=== PATIENT | female | born 1960 | race Caucasian/White ===

== ENCOUNTER 2020-10-22 13:42 | Outpatient (REF) | payer OTHER, SELFPAY ==
--- NOTE | ~2020-10-22 | MM_ITS ---
EXAMINATION: MM DIAGNOSTIC DIGITAL BREAST TOMOSYNTHESIS, RIGHT CLINICAL INFORMATION: Short interval follow-up probable benign calcifications right breast posterior 8:30 o'clock position. The lifetime risk of breast cancer based on the Tyrer-Cuzick Model is 7%. COMPARISON: Mammography: 04/01/2020, 03/21/2020 (BI-RADS 0), 05/26/2018 TECHNIQUE: Digital breast tomosynthesis is performed in both the craniocaudal and mediolateral oblique views along with computer-aided detection (CAD). Synthesized 2D images are generated from the tomosynthesis. Additional magnification right CC and magnification right ML views are obtained. FINDINGS: There are scattered areas of fibroglandular density (ACR BI-RADS breast composition Category b). Breast parenchymal pattern is unremarkable. There is no developing density or interval mass or architectural abnormality. The calcifications for follow-up posterior 8:30 o'clock position are stable from prior diagnostic exam and possibly chronic, although better appreciated with magnification views. They will be reassessed again at time of annual bilateral mammography, due in 6 months. Results are provided to the patient at time of visit by the technologist. MM/MM tomosynthesis diagnostic RT IMPRESSION: Probable benign calcifications posterior 8:30 o'clock position stable from prior diagnostic exam. ASSESSMENT: BI-RADS 3: Probably Benign RECOMMENDATION: Diagnostic mammography at time of bilateral annual exam, due in 6 months. This patient's information was entered into a reminder system with a target due date for their next mammogram.
== END 2020-10-22 13:43 | disposition home or self-care (01) ==
LOC: HO.MAMMO 13:42
PROVIDERS: PCP Internal Medicine; Visit Provider Internal Medicine
DX: R92.1 Mammographic calcification found on diagnostic imaging of breast (principal)
CPT/HCPCS: 77061; 77065

== ENCOUNTER 2021-03-26 11:58 | Outpatient (REF) | payer OTHER, SELFPAY ==
[2021-03-26 14:22] LABS: MANUAL DIFF FLAG NO
[2021-03-26 14:28] LABS: Basophils Percent Auto 0.4 % (0-2); Eosinophils Absolute Auto 0.1 X10*3/uL (0.0-0.4); Eosinophils Percent Auto 1.5 % (0-4); Hematocrit 43.1 % (37-47); Hemoglobin 13.6 g/dl (12.0-16.0); Imm Gran Abs Auto 0.02 X10*3/uL (0.00-0.03); Imm Gran Pct Auto 0.3 % (0.0-0.4); Lymphocytes Absolute Auto 2.2 X10*3/uL (1.2-4.9); Lymphocytes Percent Auto 28.6 % (20-40); Mean Corpuscular HGB Conc 31.6 g/dl (31.0-35.0); Mean Corpuscular Hemoglobin 28.3 pg (27.0-33.0); Mean Corpuscular Volume 89.8 fL (80-98); Mean Platelet Volume 11.1 fL (9.4-12.3); Monocytes Absolute Auto 0.5 X10*3/uL (0.1-1.2); Monocytes Percent Auto 6.9 % (2-11); Neutrophils Absolute Auto 4.7 X10*3/uL (2.0-8.3); Neutrophils Percent Auto 62.3 % (45-73); Platelet Count 264 X10*3/uL (160-400); White Blood Count 7.5 X10*3/uL (4.8-10.8)
[2021-03-26 14:56] LABS: Alanine Aminotransferase 16 U/L (0-31); Albumin Level 4.1 g/dL (3.5-5.0); Alkaline Phosphatase 97 U/L (39-117); Anion Gap 11 (12-20); Aspartate Amino Transferase 15 U/L (5-31); Bilirubin Total 0.3 mg/dL (0.0-1.0); Blood Urea Nitrogen 12 mg/dL (9-16); Calcium 9.3 mg/dL (8.4-10.2); Carbon Dioxide 26 mmol/L (22-29); Chloride 111 mmol/L (96-108); Cholesterol 203 mg/dL; Estimated Glomerular Filt Rate > 60; Glucose Random 94 mg/dL (60-115); HDL Cholesterol 62 mg/dL; LDL Cholesterol Calculated 129 mg/dl; Potassium 4.4 mmol/L (3.3-5.1); Sodium 144 mmol/L (135-145); Total Protein 6.2 g/dL (6.5-8.0); Triglycerides 63 mg/dL
[2021-03-26 15:05] LABS: Free T4 (Free Thyroxine) 1.18 ng/dL (0.71-1.85); Thyroid Stimulating Hormone 0.22 uIU/mL (0.32-4.0); Vitamin D 25-OH Total 43.6 ng/mL (>30)
[2021-03-26 15:22] LABS: Folate 16.9 ng/mL (> or = 4.0); Vitamin B12 1097 pg/mL (200-900)
== END 2021-03-26 11:59 | disposition home or self-care (01) ==
LOC: HO.HMGCLDS 11:58
PROVIDERS: PCP Internal Medicine; Visit Provider Internal Medicine
DX: E89.0 Postprocedural hypothyroidism (principal); E78.00 Pure hypercholesterolemia, unspecified
CPT/HCPCS: 36415; 80053; 80061; 82306; 82607; 82746; 84439; 84443; 85025

== ENCOUNTER 2021-04-27 12:59 | Outpatient (REF) | payer OTHER, SELFPAY ==
--- NOTE | ~2021-04-27 | MM_ITS ---
EXAMINATION: MM DIAGNOSTIC DIGITAL BREAST TOMOSYNTHESIS, BILATERAL CLINICAL INFORMATION: Due for yearly. Also follow-up probable benign calcifications anterior 8:30 o'clock right breast. The lifetime risk of breast cancer based on the Tyrer-Cuzick Model is 7%. COMPARISON: Mammography: 10/22/2020, 04/01/2020 (BI-RADS 0), 05/26/2018 TECHNIQUE: Digital breast tomosynthesis is performed in both the craniocaudal and mediolateral oblique views along with computer-aided detection (CAD). Synthesized 2D images are generated from the tomosynthesis. Additional magnification right CC and magnification right ML views are provided. FINDINGS: There are scattered areas of fibroglandular density (ACR BI-RADS breast composition Category b). Parenchymal pattern is similar to prior studies. There is no developing density or architectural abnormality. No interval abnormal calcifications. There are scattered bilateral punctate calcifications in both breasts. There are no increasing calcifications posterior 8:30 o'clock right breast. No interval ductal distribution or pleomorphic types. The axilla and skin contours are unremarkable. Results are provided to the patient at time of visit by the technologist. Right breast calcifications will be reassessed again at time of annual bilateral mammography to conclude long-term surveillance. MM/MM tomosynthesis diagnostic BI IMPRESSION: No significant changes from prior study. ASSESSMENT: BI-RADS 3: Probably Benign RECOMMENDATION: Magnification views right breast at time of next bilateral annual mammography, due in one year. This patient's information was entered into a reminder system with a target due date for their next mammogram.
== END 2021-04-27 13:00 | disposition home or self-care (01) ==
LOC: HO.MAMMO 12:59
PROVIDERS: Visit Provider Internal Medicine
DX: R92.1 Mammographic calcification found on diagnostic imaging of breast (principal)
CPT/HCPCS: 77062; 77066

== ENCOUNTER 2022-05-10 14:34 | Outpatient (REF) | payer OTHER, SELFPAY ==
--- NOTE | ~2022-05-10 | MM_ITS ---
EXAMINATION: MM DIAGNOSTIC DIGITAL BREAST TOMOSYNTHESIS, BILATERAL CLINICAL INFORMATION: One-year followup for right breast calcifications. Yearly left breast study. The lifetime risk of breast cancer based on the Tyrer-Cuzick Model is 7.1%. COMPARISON: Mammography: 04/27/2021 and studies dating back to 02/27/2014. TECHNIQUE: Digital breast tomosynthesis is performed in both the craniocaudal and mediolateral oblique views along with computer-aided detection (CAD). Synthesized 2D images are generated from the tomosynthesis. Additional spot magnification views of the right breast in craniocaudal and 90 degree mediolateral views were performed. FINDINGS: There are scattered areas of fibroglandular density (ACR BI-RADS breast composition Category b). There are no new significant masses, abnormal calcifications, or other abnormalities. Right breast calcifications have been stable for greater than 2 years. Results are provided to the patient at time of visit by the technologist. MM/MM tomosynthesis diagnostic BI IMPRESSION: There are no significant changes from prior study. ASSESSMENT: BI-RADS 2: Benign RECOMMENDATION: Routine annual mammography screening due in 12 months. This patient's information was entered into a reminder system with a target due date for their next mammogram.
== END 2022-05-10 14:35 | disposition home or self-care (01) ==
LOC: HO.MAMMO 14:34
PROVIDERS: Visit Provider Internal Medicine
DX: R92.1 Mammographic calcification found on diagnostic imaging of breast (principal)
CPT/HCPCS: 77062; 77066

== ENCOUNTER 2022-08-08 09:20 | Outpatient (REF) | payer OTHER, SELFPAY ==
[2022-08-08 11:19] LABS: MANUAL DIFF FLAG NO
[2022-08-08 11:49] LABS: Basophils Absolute Auto 0.1 X10*3/uL (0.0-0.2); Basophils Percent Auto 0.6 % (0-2); Eosinophils Absolute Auto 0.6 X10*3/uL (0.0-0.4); Eosinophils Percent Auto 7.7 % (0-4); Hematocrit 42.8 % (37.0-47.0); Hemoglobin 13.9 g/dl (12.0-16.0); Imm Gran Abs Auto 0.02 X10*3/uL (0.00-0.03); Imm Gran Pct Auto 0.2 % (0.0-0.4); Immature Retic Fraction 4.7 % (3.0-15.9); Lymphocytes Absolute Auto 2.3 X10*3/uL (1.2-4.9); Lymphocytes Percent Auto 29.1 % (20-40); Mean Corpuscular HGB Conc 32.5 g/dl (31.0-35.0); Mean Corpuscular Hemoglobin 29.1 pg (27.0-33.0); Mean Corpuscular Volume 89.7 fL (80.0-98.0); Monocytes Absolute Auto 0.6 X10*3/uL (0.1-1.2); Monocytes Percent Auto 6.9 % (2-11); Neutrophils Absolute Auto 4.4 x10*3/uL (2.0-8.3); Neutrophils Percent Auto 55.5 % (45-73); Platelet Count 248 X10*3/uL (160-400); Red Blood Count 4.77 X10*6/uL (4.20-5.50); Red Cell Distribution Width 13.2 % (11.0-16.0); Retic HGB Equivalent 34.4 pg (30.0-35.0); Reticulocyte Percent 0.9 % (0.5-1.8); Reticulocytes Absolute 0.043 X10*6/uL (0.026-0.095)
[2022-08-08 13:47] LABS: Folate 17.1 ng/mL (> or = 4.0); Vitamin B12 1363 pg/mL (200-900)
[2022-08-08 14:05] LABS: Alanine Aminotransferase 17 U/L (0-31); Albumin Level 4.2 g/dL (3.5-5.0); Alkaline Phosphatase 101 U/L (39-117); Anion Gap 11 (12-20); Aspartate Amino Transferase 17 U/L (5-31); Bilirubin Total 0.5 mg/dL (0.0-1.0); Blood Urea Nitrogen 15 mg/dL (9-16); Calcium 9.3 mg/dL (8.4-10.2); Carbon Dioxide 28 mmol/L (22-29); Chloride 107 mmol/L (96-108); Cholesterol 218 mg/dL; Estimated Glomerular Filt Rate > 60; Glucose Random 88 mg/dL (60-115); HDL Cholesterol 62 mg/dL; Iron 97 mcg/dL (30-160); LDL Cholesterol Calculated 140 mg/dl; Percent Iron Saturation 38 % (15-50); Potassium 4.2 mmol/L (3.3-5.1); Sodium 142 mmol/L (135-145); Total Iron Binding Capacity 255 mcg/dL (228-428); Total Protein 6.5 g/dL (6.5-8.0); Triglycerides 80 mg/dL; Unsaturated Iron Binding 158 ug/dL
[2022-08-08 14:06] LABS: Ferritin 187 ng/mL (10-250); Free T4 (Free Thyroxine) 1.22 ng/dL (0.71-1.85); Thyroid Stimulating Hormone 2.44 uIU/mL (0.32-4.0); Vitamin D 25-OH Total 38.6 ng/mL (>30)
[2022-08-10 21:49] LABS: Zinc 81 mcg/dL (60-130)
== END 2022-08-08 09:21 | disposition home or self-care (01) ==
LOC: HO.HMGCLDS 09:20
PROVIDERS: Absent Provider Dermatology; PCP Internal Medicine; Visit Provider Internal Medicine
DX: E89.0 Postprocedural hypothyroidism (principal); K21.9 Gastro-esophageal reflux disease without esophagitis; E78.00 Pure hypercholesterolemia, unspecified
CPT/HCPCS: 36415; 80053; 80061; 82306; 82607; 82728; 82746; 83540; 84439; 84443; 84630; 85025; 85045

== ENCOUNTER → 2023-05-11 13:30 | Outpatient (BNV) | payer OTHER, SELFPAY | PROVIDERS: Visit Provider Radiology Diagnostic Radiology | DX: Z12.31 Encounter for screening mammogram for malignant neoplasm of breast (principal) | CPT/HCPCS: 77063; 77067 ==

== ENCOUNTER 2023-05-11 13:32 | Outpatient (REF) | payer OTHER, SELFPAY | END 2023-05-11 13:33 | disposition home or self-care (01) | LOC: HO.MAMMO 13:32 | PROVIDERS: Visit Provider Internal Medicine | DX: Z12.31 Encounter for screening mammogram for malignant neoplasm of breast (principal) | CPT/HCPCS: 77063; 77067 ==

== ENCOUNTER 2023-07-03 17:20 | Outpatient (AMB) | payer OTHER, SELFPAY ==
[2023-07-03 17:30] VITALS: BP 138/88; PULSE 55; O2SAT 97; BMI 28.7
--- NOTE | 2023-07-03 17:30 | A.OFFPC_ITS ---
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: No Accompanied by: Self / Same As Patient Allergies thyrotropin [Thyrogen] Allergy (Unknown, Verified 07/03/23 17:30) Rash Medication List - Last Reconciled 07/03/23 by Hever Solis MD calcium carbonate ([place]) 168 mg PO .QD cholecalciferol (vitamin D3) 25 mcg PO DAILY docusate sodium 100 mg PO DAILY ferrous sulfate (Feosol) 325 mg PO DAILY flaxseed oil 1,000 mg PO DAILY fluticasone propionate 50 mcg/actuation 2 sprays intranasal DAILY Lactobacillus combo no.23 (Berto Probiotic) cells PO levothyroxine (Levoxyl) 88 mcg PO DAILY vitamin B complex (B Complex-Vitamin B12 tablet) 1 tab PO DAILY Tobacco use date assessed: 07/03/23 Fall risk assessment: No Falls in past year Last assessed Fall Risk: 07/03/23 Dental Screening Dental Screen Date: 07/03/23 Did you have a dental visit in the last 12 months?: Yes Did you have a dental problem in the last 6 months where you did not have access to dental care?: No Was dental information given to patient?: Patient has dentist HPI PHYSICAL HPI Details 62-year-old overweight female with a 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 Last seen in June 2022. Patient is up-to-date with colonoscopy January 2020. Mammogram up-to-date bone density with osteopenia last July 2018. Patient is for physical exam today.. 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 Patient was last seen on my notes endocrinology in [facility] last year. Last thyroid ultrasound was done in 2020 and was advised to repeat in 2-3 years [facility] Medical History (Updated 07/03/23 @ 17:35 by Hever Solis MD) Overweight (BMI 25.0-29.9) Osteopenia Hurthle cell carcinoma of thyroid GERD (gastroesophageal reflux disease) Hypercholesterolemia Generalized anxiety disorder Postsurgical hypothyroidism Obesity (BMI 30-39.9) Surgical History H/O toe surgery H/O tubal ligation History of hip replacement History of tonsillectomy Family History Paternal Grandfather Heart problem Maternal Grandfather Throat cancer Liver cancer Alcohol abuse Social History (Updated 07/03/23 @ 17:43 by Hever Solis MD) Housing: House Alcohol intake: current Comment: once a week 2 drinks Patient Tobacco Use Status: Never used Tobacco e-Cigarette/Vaping Use: Never Used service: No Current occupational status: employed Cognitive needs: No Hearing needs: No Vision needs: No Questionnaire PHQ-9 Over the last 2 weeks, how often have you been bothered by any of the following problems? 1. Little interest or pleasure in doing things: not at all 2. Feeling down, depressed, or hopeless: not at all 3. Trouble falling or staying asleep, or sleeping too much: not at all 4. Feeling tired or having little energy: not at all 5. Poor appetite or overeating: not at all 6. Feeling bad about yourself - or that you are a failure or have let yourself or your family down: not at all 7. Trouble concentrating on things, such as reading the newspaper or watching television: not at all 8. Moving or speaking so slowly that other people could have noticed. Or the opposite - being so fidgety or restless that you have been moving around a lot more than usual: not at all 9. Thoughts that you would be better off or of hurting yourself in some way: not at all Total score: 0 Depression Screening Interpretation: Negative Depression Screening Done: Yes Source: Developed by Drs. Houston Justice, Jia Marmolejo, Iker Acosta and colleagues, with an educational jonel from [employer]. Thrive Questionnaire Date Thrive assessed: 07/03/23 I am a: Patient What is your living situation today?: I have a steady place to live Within the past 12 months, did the food you bought not last and you didn't have the money to get more?: Never true Within the past 12 months, did you worry whether your food would run out before you got money to buy more?: Never true Do you have trouble paying for medicines?: No Do you have trouble getting transportation to medical appointments?: No Do you have trouble paying your heating and electricity bill?: No Do you have trouble taking care of your child, family member or friend?: No Do you have trouble with day-to-day activities such as bathing, preparing meals, shopping, managing finances, etc.?: No Are you currently unemployed and looking for a job?: No Are you interested in more education?: No Please select the resources that you would like help with: None Currently or been in a relationship where the following occur: no concerns reported AUDIT C Alcohol Use Questionnaire (AUDIT-C) 1. How often do you have a drink containing alcohol?: 2-3 times a week 2. How many drinks containing alcohol do you have on a typical day when you are drinking?: 1 or 2 3. How often do you have six or more drinks on one occasion?: Never Total Score: 3 CRISTINO-7 AMB Questionnaire CRISTINO-7 Date CRISTINO - 7 assessed: 07/03/23 Feeling nervous, anxious, or on edge: 0 = Not at all Not being able to stop or control worryin = Not at all Worrying too much about different things: 0 = Not at all Trouble relaxin = Not at all Being so restless that it is hard to sit still: 0 = Not at all Becoming easily annoyed or irritable: 0 = Not at all Feeling afraid as if something awful might happen: 0 = Not at all Total CRISTINO-7 score (0-4 normal; 5-9 mild; 10-14 moderate; 15-21 severe): 0 Source: Developed by Drs. Houston Justice, Jia Marmolejo, Iker Acosta and colleagues, with an educational jonel from [employer]. Review of Systems Const Denies poor appetite and Denies weakness Eyes Denies no additional complaints ENT Reports Normal hearing present, Denies dizziness, Denies nasal congestion, Denies tinnitus and Denies sore throat Card Denies chest pain, Denies syncope, Denies rapid heart rate and Denies dyspnea Resp Denies cough and Denies dyspnea GI Denies change in stool character, Reports constipation, Denies diarrhea, Denies nausea and Denies vomiting Denies urinary frequency, Denies difficulty voiding and Denies dysuria Neuro Reports Normal hearing present, Denies confusion, Denies dizziness, Denies syncope and Denies weakness Psych Denies confusion Physical exam (Primary Care) Vital Signs: Oxygen Delivery Method Room Air 07/03/23 17:30 Tobacco/Smoking Status: Tobacco use Status Tobacco use date assessed 07/03/23 07/03/23 17:32 Patient Tobacco Use Status Never used Tobacco 07/03/23 17:32 e-Cigarette/Vaping Use Never Used 07/03/23 17:32 PHQ-9: PHQ-9 Score PHQ-9: Total score 0 07/03/23 17:32 Depression Screening Interpretation: Negative Thrive Assessment: Date of Thrive Assessment Date Thrive assessed 07/03/23 12 17:32 Currently or been in a relationship where the following occur: no concerns reported Const General: No confusion Orientation/consciousness: No confusion HENMT Head: Yes normocephalic Ears: external ears normal and TM's normal bilaterally Face and sinus: Yes normal facial exam Mouth: moist mucous membranes Throat: Yes tonsils normal Eyes Conjunctivae: conjunctivae normal Pupils: Equal, round and reactive pupils present and Pupil accommodation reflex normal Direct Ophthalmoscopy: normal light reflex Neck Neck: No lymphadenopathy Thyroid: Thyroid normal Chest Chest palpation & inspection: normal inspection of the chest Resp Effort & Inspection: normal respiratory effort and no audible wheezes Auscultation: clear to auscultation bilaterally, no crackles, no wheezes and lung sounds not diminished Cardio Rate: regular rate Rhythm: regular rhythm Peripheral pulses: radial pulses present and dorsalis pedis present GI Palpation (GI): no masses Auscultation: normal bowel sounds and normoactive bowel sounds Rectal Exam - Female: deferred Skin General skin exam: no rashes or lesions noted Rashes: no rashes Neuro General: No confusion Cranial nerves: Yes Equal, round and reactive pupils present and Yes Normal hearing present Cognition (Neuro): normal cognition Gait exam (Neuro): Normal gait present Motor exam (neuro): 5/5 motor strength present throughout Deep tendon reflexes (DTR's): Right brachioradialis reflex intensity grade: 2+, Left brachioradialis reflex intensity grade: 2+, Right patellar reflex intensity grade: 2+ and Left patellar reflex intensity grade: 2+ Extrem General: No edema Assessment and Plan Assessment & Plan (1) Annual physical exam: Code(s): Z00.00 - Encounter for general adult medical examination without abnormal findings (2) Hurthle cell carcinoma of thyroid: Comment: [facility] Code(s): C73 - Malignant neoplasm of thyroid gland Plan: Patient is being followed up in [place] and from the last note last year was advised to get ultrasound of the thyroid. (3) Postsurgical hypothyroidism: Code(s): E89.0 - Postprocedural hypothyroidism Plan: Continue with thyroid medication and July 2022 last blood work (4) Hypercholesterolemia: Code(s): E78.00 - Pure hypercholesterolemia, unspecified Plan: Avoid fried foods, chicken skin, eggs, butter margarine, pastries and meat. Be it pork or beef they have a lot of cholesterol LDL goal of less than 130 and triglyceride of less than 150 (5) GERD (gastroesophageal reflux disease): Code(s): K21.9 - Gastro-esophageal reflux disease without esophagitis Plan: Avoid the foods that causes that usually spicy foods, tomato products, juices, coffee, soda and foods that your sensitive to. After eating do not lie down, allow 3-4 hours before in lie down. And keep the head of bed above 30 degrees to avoid the acid from going up. (6) Generalized anxiety disorder: Code(s): F41.1 - Generalized anxiety disorder (7) Osteopenia: Comment: July 2018 Code(s): M85.80 - Other specified disorders of bone density and structure, unspecified site (8) Overweight (BMI 25.0-29.9): Code(s): E66.3 - Overweight Orders: Orders Free T4 (Free Thyroxine) Today E89.0 - Postprocedural hypothyroidism Comprehensive Met. Panel Today E78.00 - Pure hypercholesterolemia, unspecified Thyroid Stimulating Hormone Today E89.0 - Postprocedural hypothyroidism Complete Blood Count Auto Diff Today E89.0 - Postprocedural hypothyroidism Lipid Panel Today E78.00 - Pure hypercholesterolemia, unspecified Vitamin B12 and Folate Today E78.00 - Pure hypercholesterolemia, unspecified Vitamin D 25-OH Total Today E78.00 - Pure hypercholesterolemia, unspecified XR DEXA axial skeleton Today M81.0 - Age-related osteoporosis without current pathological fracture, M85.80 - Other specified disorders of bone density and structure, unspecified site Coding Level of Care Code Est Pt Prev Care 40-64y(80075) Diagnoses Annual physical exam Z00.00 Hurthle cell carcinoma of thyroid C73 Postsurgical hypothyroidism E89.0 Hypercholesterolemia E78.00 GERD (gastroesophageal reflux disease) K21.9 Generalized anxiety disorder F41.1 Osteopenia M85.80 Overweight (BMI 25.0-29.9) E66.3
== END 2023-07-03 17:58 | disposition home or self-care (01) ==
PROVIDERS: Visit Provider Internal Medicine
DX: Z00.00 Encounter for general adult medical examination without abnormal findings (principal); C73 Malignant neoplasm of thyroid gland; E89.0 Postprocedural hypothyroidism; E78.00 Pure hypercholesterolemia, unspecified; K21.9 Gastro-esophageal reflux disease without esophagitis; F41.1 Generalized anxiety disorder; M85.80 Other specified disorders of bone density and structure, unspecified site; E66.3 Overweight
CPT/HCPCS: 99396

== ENCOUNTER 2023-08-02 14:02 | Outpatient (REF) | payer OTHER, SELFPAY ==
--- NOTE | ~2023-08-02 | MM_ITS ---
EXAMINATION: BONE DENSITOMETRY CLINICAL INDICATION: Age-related osteoporosis without current pathological fracture. COMPARISON: Previous BD dated 08/14/2018 and baseline BD dated 01/14/2009, 01/29/2015. TECHNIQUE: Using a [employer] DXA System (software version: 13.1) manufactured by [employer], dual-energy x-ray absorptiometry was performed of the lumbar spine and left forearm radius 33%. Patient had bilateral hip replacements. The images are of good technical quality. Summary results are attached. FINDINGS: AP SPINE L1-L4: Current: BMD 1.309 g/cm2, Z-score 2.4, T-score 1.1, normal, 8.5% increase from previous, 3.8% increase from baseline (<5% change is not significant). Prior: BMD 1.206 g/cm2. Baseline: BMD 1.261 g/cm2. LEFT FOREARM RADIUS 33%: BMD 0.799 g/cm2, Z-score 0.4, T-score -0.9, normal, 4.0% decrease from previous, 8.9% decrease from baseline (<5% change is not significant). Prior: BMD 0.832 g/cm2. Baseline: BMD 0.877 g/cm2. IDENTIFIED RISK FACTORS: Height loss, menopause. HISTORY OF FRACTURE: None listed. MEDICATIONS: Calcium supplements or multivitamin, vitamin D. MM/XR DEXA axial skeleton IMPRESSION: 1. DIAGNOSIS: Normal bone density based on the lowest T-score value of -0.9 in the forearm radius 33% applying World Health Organization criteria. 2. 10-YEAR FRACTURE RISK PREDICTION, FRAX: Not performed in this patient without a femoral neck BMD measurement. 3. Treatment Recommendations: NOF guidelines recommend consideration for treatment in postmenopausal women and men age 50 and older presenting with the following: -A hip or vertebral (clinical or morphometric) fracture. -T-score less than or equal to -2.5 at the femoral neck or spine after appropriate evaluation to exclude secondary causes. -Low bone mass at the hip or spine and a 10-year fracture probability by FRAX of greater than or equal to 3% for hip fracture or greater than or equal to 20% for major osteoporotic fracture based on the [place] adapted WHO algorithm. 4. Other Recommendations: All treatment decisions require clinical judgment and consideration of individual patient factors, including patient preferences, comorbidities, previous drug use, risk factors not captured in the FRAX model (e.g. frailty, falls, vitamin D deficiency, increased bone turnover, interval significant decline in bone density) and possible under or overestimation of fracture risk by FRAX. FUTURE SCAN RECOMMENDATION: People with diagnosed cases of osteoporosis or at high risk for fracture should have regular bone mineral density tests. For patients eligible for Medicare, routine testing is allowed once every 2 years. The testing frequency can be increased to one year for patients who have rapidly progressing disease, those who are receiving or discontinuing medical therapy to restore bone mass, or have additional risk factors.
== END 2023-08-02 14:03 | disposition home or self-care (01) ==
LOC: HO.MAMMO 14:02
PROVIDERS: Visit Provider Internal Medicine
DX: Z13.820 Encounter for screening for osteoporosis (principal); M81.0 Age-related osteoporosis without current pathological fracture; M85.80 Other specified disorders of bone density and structure, unspecified site; Z78.0 Asymptomatic menopausal state
CPT/HCPCS: 77080

== ENCOUNTER 2023-08-17 08:57 | Outpatient (REF) | payer OTHER, SELFPAY ==
[2023-08-17 11:14] LABS: MANUAL DIFF FLAG NO
[2023-08-17 11:47] LABS: Basophils Percent Auto 0.5 % (0-2); Eosinophils Absolute Auto 0.4 X10*3/uL (0.0-0.4); Eosinophils Percent Auto 5.5 % (0-4); Hematocrit 44.5 % (37.0-47.0); Hemoglobin 14.3 g/dl (12.0-16.0); Imm Gran Abs Auto 0.03 X10*3/uL (0.00-0.03); Imm Gran Pct Auto 0.4 % (0.0-0.4); Lymphocytes Absolute Auto 2.4 X10*3/uL (1.2-4.9); Lymphocytes Percent Auto 31.2 % (20-40); Mean Corpuscular HGB Conc 32.1 g/dl (31.0-35.0); Mean Corpuscular Hemoglobin 29.7 pg (27.0-33.0); Mean Corpuscular Volume 92.3 fL (80.0-98.0); Mean Platelet Volume 11.3 fL (9.4-12.3); Monocytes Absolute Auto 0.6 X10*3/uL (0.1-1.2); Monocytes Percent Auto 7.8 % (2-11); Neutrophils Absolute Auto 4.2 x10*3/uL (2.0-8.3); Neutrophils Percent Auto 54.6 % (45-73); Platelet Count 267 X10*3/uL (160-400); Red Blood Count 4.82 X10*6/uL (4.20-5.50); Red Cell Distribution Width 12.9 % (11.0-16.0); White Blood Count 7.7 X10*3/uL (4.8-10.8)
[2023-08-17 12:07] LABS: Alanine Aminotransferase 15 U/L (0-31); Alkaline Phosphatase 92 U/L (39-117); Anion Gap 9 (12-20); Aspartate Amino Transferase 13 U/L (5-31); Bilirubin Total 0.3 mg/dL (0.0-1.0); Blood Urea Nitrogen 14 mg/dL (9-16); Calcium 9.5 mg/dL (8.4-10.2); Carbon Dioxide 29 mmol/L (22-29); Chloride 108 mmol/L (96-108); Cholesterol 196 mg/dL (<200); Estimated Glomerular Filt Rate > 60; Glucose Random 89 mg/dL (60-115); HDL Cholesterol 60 mg/dL (>40); LDL Cholesterol Calculated 120 mg/dL (<100); Potassium 4.2 mmol/L (3.3-5.1); Sodium 142 mmol/L (135-145); Total Protein 6.7 g/dL (6.5-8.0); Triglycerides 81 mg/dL (<150)
[2023-08-17 12:16] LABS: Folate 6.3 ng/mL (> or = 4.0); Vitamin B12 797 pg/mL (200-900)
[2023-08-17 12:31] LABS: Free T4 (Free Thyroxine) 1.19 ng/dL (0.71-1.85); Vitamin D 25-OH Total 47.7 ng/mL (>30)
== END 2023-08-17 08:58 | disposition home or self-care (01) ==
LOC: HO.HMGCLDS 08:57
PROVIDERS: PCP Internal Medicine; Visit Provider Internal Medicine
DX: E78.00 Pure hypercholesterolemia, unspecified (principal); E89.0 Postprocedural hypothyroidism
CPT/HCPCS: 36415; 80053; 80061; 82306; 82607; 82746; 84439; 84443; 85025

== ENCOUNTER 2024-02-07 13:31 | Outpatient (AMB) | payer MEDICARE, SELFPAY ==
[2024-02-07 13:40] VITALS: BP 124/68; PULSE 50; O2SAT 98; BMI 28.7
--- NOTE | 2024-02-07 13:40 | MHC.PC.OV ---
Vital Signs 02/07/24 13:40 Height 5 ft 3 in Weight 162 lb BMI 28.7 BP 124/68 Blood Pressure Location Lt brachial Position Sitting Pulse 50 Pulse Source Pulse Oximeter Pulse Oximetry (%) 98 Oxygen Delivery Method Room Air Intake Visit Reasons: Right quad and knee pain and bruising Allergies thyrotropin [Thyrogen] Allergy (Unknown, Verified 02/07/24 13:40) Rash Tobacco use date assessed: 02/07/24 Fall risk assessment: No Falls in past year Last assessed Fall Risk: 02/07/24 Dental Screening Dental Screen Date: 02/07/24 Did you have a dental visit in the last 12 months?: Yes Did you have a dental problem in the last 6 months where you did not have access to dental care?: No Was dental information given to patient?: Patient has dentist HPI Right quad and knee pain and bruising HPI Details 63-year-old overweight female with a history of thyroid cancer with hypothyroidism hypercholesterolemia GERD generalized anxiety disorder and osteopenia last seen in June 2023. Up-to-date colonoscopy January 2020 mammogram April 2023 bone density 08/05/2023. Patient called and having bruise on the right leg prompting for consultation. [facility] Medical History (Updated 02/07/24 @ 14:13 by Hever Solis MD) Overweight (BMI 25.0-29.9) Osteopenia Hurthle cell carcinoma of thyroid GERD (gastroesophageal reflux disease) Hypercholesterolemia Generalized anxiety disorder Postsurgical hypothyroidism Obesity (BMI 30-39.9) Surgical History H/O toe surgery H/O tubal ligation History of hip replacement History of tonsillectomy Family History Paternal Grandfather Heart problem Maternal Grandfather Throat cancer Liver cancer Alcohol abuse Social History (Updated 07/03/23 @ 17:43 by Hever Solis MD) Housing: House Alcohol intake: current Comment: once a week 2 drinks Patient Tobacco Use Status: Never used Tobacco e-Cigarette/Vaping Use: Never Used service: No Current occupational status: employed Cognitive needs: No Hearing needs: No Vision needs: No Questionnaire PHQ-9 Over the last 2 weeks, how often have you been bothered by any of the following problems? 1. Little interest or pleasure in doing things: not at all 2. Feeling down, depressed, or hopeless: not at all 3. Trouble falling or staying asleep, or sleeping too much: not at all 4. Feeling tired or having little energy: not at all 5. Poor appetite or overeating: not at all 6. Feeling bad about yourself - or that you are a failure or have let yourself or your family down: not at all 7. Trouble concentrating on things, such as reading the newspaper or watching television: not at all 8. Moving or speaking so slowly that other people could have noticed. Or the opposite - being so fidgety or restless that you have been moving around a lot more than usual: not at all 9. Thoughts that you would be better off or of hurting yourself in some way: not at all Total score: 0 Depression Screening Interpretation: Negative Depression Screening Done: Yes Source: Developed by Drs. Houston Justice, Jia Marmolejo, Iker Acosta and colleagues, with an educational jonel from [employer]. Thrive Questionnaire Date Thrive assessed: 02/07/24 I am a: Patient What is your living situation today?: I have a steady place to live Within the past 12 months, did the food you bought not last and you didn't have the money to get more?: Never true Within the past 12 months, did you worry whether your food would run out before you got money to buy more?: Never true Do you have trouble paying for medicines?: No Do you have trouble getting transportation to medical appointments?: No Do you have trouble paying your heating and electricity bill?: No Do you have trouble taking care of your child, family member or friend?: No Do you have trouble with day-to-day activities such as bathing, preparing meals, shopping, managing finances, etc.?: No Are you currently unemployed and looking for a job?: No Are you interested in more education?: No Please select the resources that you would like help with: None Currently or been in a relationship where the following occur: No concerns reported THRIVE Score: 0 AUDIT C Alcohol Use Questionnaire (AUDIT-C) 1. How often do you have a drink containing alcohol?: 2-3 times a week 2. How many drinks containing alcohol do you have on a typical day when you are drinking?: 1 or 2 3. How often do you have six or more drinks on one occasion?: Never Total Score: 3 CRISTINO-7 AMB Questionnaire CRISTINO-7 Date CRISTINO - 7 assessed: 02/07/24 Feeling nervous, anxious, or on edge: 0 = Not at all Not being able to stop or control worryin = Not at all Worrying too much about different things: 0 = Not at all Trouble relaxin = Not at all Being so restless that it is hard to sit still: 0 = Not at all Becoming easily annoyed or irritable: 0 = Not at all Feeling afraid as if something awful might happen: 0 = Not at all Total CRISTINO-7 score (0-4 normal; 5-9 mild; 10-14 moderate; 15-21 severe): 0 Source: Developed by Drs. Houston Justice, Jia Marmolejo, Iker Acosta and colleagues, with an educational jonel from [employer]. Physical exam (Primary Care) Vital Signs: Last Vital Signs Pulse 50 02/07/24 13:40 BP 124/68 02/07/24 13:40 Pulse Ox 98 02/07/24 13:40 Oxygen Delivery Method Room Air 02/07/24 13:40 BMI result Body Mass Index 28.7 Tobacco/Smoking Status: Tobacco use Status Tobacco use date assessed 02/07/24 02/07/24 13:45 Patient Tobacco Use Status Never used Tobacco 02/07/24 13:45 e-Cigarette/Vaping Use Never Used 02/07/24 13:45 PHQ-9: PHQ-9 Score PHQ-9: Total score 0 02/07/24 13:45 Depression Screening Interpretation: Negative Thrive Assessment: Date of Thrive Assessment Date Thrive assessed 02/07/24 02/07/24 13:45 Currently or been in a relationship where the following occur: No concerns reported Const General: alert; No acute distress Eyes Conjunctivae: conjunctivae normal Resp Auscultation: clear to auscultation bilaterally Cardio Rate: regular rate Rhythm: regular rhythm GI Inspection: Yes normal to inspection Extrem General: Yes normal to inspection and No edema Assessment and Plan Assessment & Plan (1) Osteopenia: Comment: July normal Code(s): M85.80 - Other specified disorders of bone density and structure, unspecified site Plan: Continued surveillance of bone density. (2) Postsurgical hypothyroidism: Code(s): E89.0 - Postprocedural hypothyroidism Plan: Continue with the thyroid medication (3) Hematoma of left knee region: Code(s): S80.02XA - Contusion of left knee, initial encounter Plan: Discussed with the patient that I see a hematoma on the distal lateral right thigh and leg and the lateral side of the right knee. Will continue to monitor as this is resolving. And will call if there is a problem. Coding Level of Care Code Est Pt Level 4 (73787) Diagnoses Osteopenia M85.80 Postsurgical hypothyroidism E89.0 Hematoma of left knee region S80.02XA
== END 2024-02-07 14:17 | disposition home or self-care (01) ==
PROVIDERS: PCP Internal Medicine; Visit Provider Internal Medicine
DX: M85.80 Other specified disorders of bone density and structure, unspecified site (principal); E89.0 Postprocedural hypothyroidism; S80.02XA Contusion of left knee, initial encounter
CPT/HCPCS: 99214

== ENCOUNTER → 2024-05-17 13:00 | Outpatient (BNV) | payer OTHER, SELFPAY | PROVIDERS: PCP Internal Medicine; Visit Provider Internal Medicine | DX: Z12.31 Encounter for screening mammogram for malignant neoplasm of breast (principal) | CPT/HCPCS: 77063; 77067 ==

== ENCOUNTER 2024-05-17 13:01 | Outpatient (REF) | payer OTHER, SELFPAY ==
--- NOTE | ~2024-05-17 | MM_ITS ---
EXAMINATION: MM SCREENING DIGITAL BREAST TOMOSYNTHESIS, BILATERAL CLINICAL INFORMATION: Screening. Asymptomatic. COMPARISON: Mammography: Comparison is made with available priors TECHNIQUE: Digital breast mammography with tomosynthesis is performed in both the craniocaudal and mediolateral oblique views along with computer-aided detection (CAD). FINDINGS: There are scattered areas of fibroglandular density (ACR BI-RADS breast composition Category b). There are no significant masses, abnormal calcifications, or other abnormalities. MM/MM tomosynthesis screening BI IMPRESSION: No mammographic evidence of malignancy. ASSESSMENT: BI-RADS BI-RADS 1 - Negative RECOMMENDATION: Routine annual mammography screening. 1 year F/U This examination should not preclude the clinical evaluation of a suspicious palpable abnormality. This patient's information was entered into a reminder system with a target due date for their next mammogram. Electronically signed by: Tatiana Cardenas DO 05/27/2024 07:40 PM MANA
== END 2024-05-17 13:02 | disposition home or self-care (01) ==
LOC: HO.MAMMO 13:01
PROVIDERS: PCP Internal Medicine; Visit Provider Internal Medicine
DX: Z12.31 Encounter for screening mammogram for malignant neoplasm of breast (principal)
CPT/HCPCS: 77063; 77067

== ENCOUNTER 2024-07-04 09:05 | Outpatient (AMB) | payer MEDICARE, SELFPAY ==
--- NOTE | 2024-07-04 09:06 | A.OFFPC_ITS ---
Vital Signs 07/04/24 09:07 Height 5 ft 3 in Weight 163 lb BMI 28.9 BP 136/82 Blood Pressure Location Lt brachial Position Sitting Pulse 60 Pulse Source Pulse Oximeter Pulse Oximetry (%) 96 Oxygen Delivery Method Room Air Intake Visit Reasons: pe Intake Note: Patient here for a physical exam Curriculum Supervisor Required: No Accompanied by: Self / Same As Patient Allergies thyrotropin [Thyrogen] Allergy (Unknown, Verified 07/04/24 09:08) Rash Medication List - Last Reconciled 07/04/24 by Hever Solis MD calcium carbonate ([place]) 168 mg PO .QD cholecalciferol (vitamin D3) 50 mcg PO DAILY docusate sodium 100 mg PO DAILY flaxseed oil 1,000 mg PO DAILY fluticasone propionate 50 mcg/actuation 2 sprays intranasal DAILY Lactobacillus combo no.23 (Berto Probiotic) cells PO levothyroxine (Levoxyl) 88 mcg PO DAILY vitamin B complex (B Complex-Vitamin B12 tablet) 1 tab PO DAILY Tobacco use date assessed: 02/07/24 Fall risk assessment: No Falls in past year Last assessed Fall Risk: 07/04/24 Dental Screening Dental Screen Date: 07/04/24 Did you have a dental visit in the last 12 months?: Yes Did you have a dental problem in the last 6 months where you did not have access to dental care?: No Was dental information given to patient?: Patient has dentist HPI pe HPI Details The patient is a 63-year-old female presenting with concerns related to hypertension management and blood pressure control. The patient was diagnosed with hypertension and has been monitoring her blood pressure at home. She reports noticing variability in her readings, with values sometimes ranging from 138/139 mmHg to 146 mmHg. She has been advised previously on lifestyle modifications and continues to monitor her blood pressure. She was also diagnosed with hypothyroidism, although she is currently on thyroid medication. Her most recent thyroid function tests were in August, and since then, she has not reported any new symptoms. The patient is managing constipation with docosate sodium and reports regular bowel movements with a daily intake of this medication. She has a history of a Vitamin D deficiency and has increased her intake to 2000 IU daily as advised. The patient described intermittent occurrences of acid reflux, sometimes associated with specific foods, but it has not persisted. She maintains a diet inclusive of fruits and vegetables and engages in regular physical activity, such as yoga and walking her dog. - Vaccines: Up to date with shingles and tetanus vaccinations. Pneumonia vaccine discussed for administration. - Cardiovascular Risk Management: Discus esther of impact of lifestyle on hypertension control. - Lifestyle: Active engagement in yoga a nd walking. - Dietary Intake: Consumption of vegetab les and fruits emphasized. - Medication Usage: Adjustment of Vitami n D dosage to 2000 IU daily for deficiency. - Performs regular physical activity inc luding yoga and walking her dog. - Diet mainly consists of fruits and veg etables; maintains regular fluid intake. - Lives with family and does not consume tobacco; limited alcohol intake occasionally. - Recent health insurance changes discus sed. - Cardiovascular: Reports changes in blo od pressure. - Gastrointestinal: Denies any swallowin g difficulties, nausea, or vomiting. Reports intermittent acid reflux. - Neurological: Denies fever or headache s. - Labs: Last thyroid function test in [facility]. - Tests: reported. [facility] Medical History (Updated 07/04/24 @ 09:32 by Hever Solis MD) Obesity (BMI 30-39.9) Overweight (BMI 25.0-29.9) Osteopenia Hurthle cell carcinoma of thyroid GERD (gastroesophageal reflux disease) Hypercholesterolemia Generalized anxiety disorder Postsurgical hypothyroidism Surgical History H/O toe surgery H/O tubal ligation History of hip replacement History of tonsillectomy Family History (Updated 07/04/24 @ 09:07 by MARLEN Aponte) Paternal Grandfather Heart problem Maternal Grandfather Throat cancer Liver cancer Alcohol abuse Social History Housing: House Alcohol intake: current Comment: once a week 2 drinks Patient Tobacco Use Status: Never used Tobacco e-Cigarette/Vaping Use: Never Used Second Hand Smoke Exposure: No service: No Current occupational status: employed Cognitive needs: No Hearing needs: No Vision needs: No Questionnaire PHQ-9 Over the last 2 weeks, how often have you been bothered by any of the following problems? 1. Little interest or pleasure in doing things: not at all 2. Feeling down, depressed, or hopeless: not at all 3. Trouble falling or staying asleep, or sleeping too much: not at all 4. Feeling tired or having little energy: several days 5. Poor appetite or overeating: not at all 6. Feeling bad about yourself - or that you are a failure or have let yourself or your family down: not at all 7. Trouble concentrating on things, such as reading the newspaper or watching television: not at all 8. Moving or speaking so slowly that other people could have noticed. Or the opposite - being so fidgety or restless that you have been moving around a lot more than usual: not at all 9. Thoughts that you would be better off or of hurting yourself in some way: not at all Total score: 1 Source: Developed by Drs. Houston Justice, Jia Marmolejo, Iker Acosta and colleagues, with an educational jonel from [employer]. Thrive Questionnaire Date Thrive assessed: 07/04/24 I am a: Patient What is your living situation today?: I have a steady place to live Within the past 12 months, did the food you bought not last and you didn't have the money to get more?: Never true Within the past 12 months, did you worry whether your food would run out before you got money to buy more?: Never true Do you have trouble paying for medicines?: No Do you have trouble getting transportation to medical appointments?: No Do you have trouble paying your heating and electricity bill?: No Do you have trouble taking care of your child, family member or friend?: No Do you have trouble with day-to-day activities such as bathing, preparing meals, shopping, managing finances, etc.?: No Are you currently unemployed and looking for a job?: No Are you interested in more education?: No Please select the resources that you would like help with: None Currently or been in a relationship where the following occur: No concerns reported THRIVE Score: 0 AUDIT C Alcohol Use Questionnaire (AUDIT-C) 1. How often do you have a drink containing alcohol?: 2-4 times a month 2. How many drinks containing alcohol do you have on a typical day when you are drinking?: 1 or 2 3. How often do you have six or more drinks on one occasion?: Never Total Score: 2 CRISTINO-7 AMB Questionnaire CRISTINO-7 Date CRISTINO - 7 assessed: 07/04/24 Feeling nervous, anxious, or on edge: 1 = Several days Not being able to stop or control worryin = Not at all Worrying too much about different things: 0 = Not at all Trouble relaxin = Not at all Being so restless that it is hard to sit still: 0 = Not at all Becoming easily annoyed or irritable: 1 = Several days Feeling afraid as if something awful might happen: 0 = Not at all Total CRISTINO-7 score (0-4 normal; 5-9 mild; 10-14 moderate; 15-21 severe): 2 Source: Developed by Drs. Houston Justice, Jia Marmolejo, Iker Acosta and colleagues, with an educational jonel from [employer]. Review of Systems Const Denies poor appetite and Denies weakness Eyes Denies no additional complaints ENT Reports Normal hearing present, Denies dizziness, Denies nasal congestion, Denies tinnitus and Denies sore throat Card Denies chest pain, Denies syncope, Denies rapid heart rate and Denies dyspnea Resp Denies cough and Denies dyspnea GI Denies change in stool character, Reports constipation, Denies diarrhea, Denies nausea and Denies vomiting Denies urinary frequency, Denies difficulty voiding and Denies dysuria Neuro Reports Normal hearing present, Denies confusion, Denies dizziness, Denies syncope and Denies weakness Psych Denies confusion Physical exam (Primary Care) Vital Signs: Last Vital Signs Pulse 60 07/04/24 09:07 BP 136/82 07/04/24 09:07 Pulse Ox 96 07/04/24 09:07 Oxygen Delivery Method Room Air 07/04/24 09:07 BMI result Body Mass Index 28.9 Tobacco/Smoking Status: Tobacco use Status Tobacco use date assessed 02/07/24 07/04/24 09:10 Patient Tobacco Use Status Never used Tobacco 07/04/24 09:10 e-Cigarette/Vaping Use Never Used 07/04/24 09:10 PHQ-9: PHQ-9 Score PHQ-9: Total score 1 07/04/24 09:59 Thrive Assessment: Date of Thrive Assessment Date Thrive assessed 07/04/24 07/04/24 09:10 Currently or been in a relationship where the following occur: No concerns reported Const General: No confusion Orientation/consciousness: No confusion HENMT Head: Yes normocephalic Ears: external ears normal and TM's normal bilaterally Face and sinus: Yes normal facial exam Mouth: moist mucous membranes Throat: Yes tonsils normal Eyes Conjunctivae: conjunctivae normal Pupils: Equal, round and reactive pupils present and Pupil accommodation reflex normal Direct Ophthalmoscopy: normal light reflex Neck Neck: No lymphadenopathy Thyroid: Thyroid normal Chest Chest palpation & inspection: normal inspection of the chest Resp Effort & Inspection: normal respiratory effort and no audible wheezes Auscultation: clear to auscultation bilaterally, no crackles, no wheezes and lung sounds not diminished Cardio Rate: regular rate Rhythm: regular rhythm Peripheral pulses: radial pulses present and dorsalis pedis present GI Palpation (GI): no masses Auscultation: normal bowel sounds and normoactive bowel sounds Rectal Exam - Female: deferred Skin General skin exam: no rashes or lesions noted Rashes: no rashes Neuro General: No confusion Cranial nerves: Yes Equal, round and reactive pupils present and Yes Normal hearing present Cognition (Neuro): normal cognition Gait exam (Neuro): Normal gait present Motor exam (neuro): 5/5 motor strength present throughout Deep tendon reflexes (DTR's): Right brachioradialis reflex intensity grade: 2+, Left brachioradialis reflex intensity grade: 2+, Right patellar reflex intensity grade: 2+ and Left patellar reflex intensity grade: 2+ Extrem General: No edema Office Procedures Flu Questionnaire Does the patient have a severe egg allergy?: No Immunizations Fluarix Triv [id number] (PF) 45 mcg (15 mcg x 3)/0.5 mL IM syringe Performing Provider: Hever Solis MD [place] [facility] [place] [facility] Documented (not given) by: MARLEN Aponte on 07/04/24 09:14 Reason Not Given: Received Previously pneumoc 20-christina conj-dip cr(PF) 0.5 mL IM syringe Performing Provider: Hever Solis MD [place] [facility] [place] [facility] Administered by: TIM Sotomayor on 07/04/24 09:59 Dose Route Admin Location Dispensed Lot Number Expiration Date [facility] Historiographer 0.5 mL IM Left Deltoid 0.5 mL [id number] 10/15/25 Follicum/Lot18 VIS Given Date VIS Provided VIS Publication Date 07/04/24 Single Vaccine 21 Eligibility Eligibility Date Funding Source Not [facility] Eligible 07/04/24 Private Coding Level of Care Code Est Pt Prev Care >65y(49779) Diagnoses Annual physical exam Z00.00 Hurthle cell carcinoma of thyroid C73 Postsurgical hypothyroidism E89.0 Hypercholesterolemia E78.00 Overweight (BMI 25.0-29.9) E66.3 Gastroesophageal reflux disease without esophagitis K21.9 Esophagitis presence: without esophagitis Generalized anxiety disorder F41.1 Blood pressure elevated without history of HTN R03.0 Assessment & Plan Assessment & Plan (1) Annual physical exam: Code(s): Z00.00 - Encounter for general adult medical examination without abnormal findings Category: Medical Plan: Patient is advised to eat healthy, keep well hydrated, keep active and have adequate sleep. (2) Hurthle cell carcinoma of thyroid: Comment: [facility] 2002 Code(s): C73 - Malignant neoplasm of thyroid gland Category: Medical Plan: Continuing to monitor the thyroid numbers (3) Postsurgical hypothyroidism: Code(s): E89.0 - Postprocedural hypothyroidism Category: Medical Plan: Continue with thyroid medication last test was in August (4) Hypercholesterolemia: Code(s): E78.00 - Pure hypercholesterolemia, unspecified Category: Medical Plan: Avoid fried foods, chicken skin, eggs, butter margarine, pastries and meat. Be it pork or beef they have a lot of cholesterol this has been controlled LDL goal of less than 130 and triglyceride of less than 150 (5) Overweight (BMI 25.0-29.9): Code(s): E66.3 - Overweight Category: Medical Plan: Continue with diet and exercise (6) GERD (gastroesophageal reflux disease): Code(s): K21.9 - Gastro-esophageal reflux disease without esophagitis Category: Medical Qualifiers: Esophagitis presence: without esophagitis Qualified Code(s): K21.9 - Gastro-esophageal reflux disease without esophagitis Plan: Avoid the foods that causes that usually spicy foods, tomato products, juices, coffee, soda and foods that your sensitive to. After eating do not lie down, allow 3-4 hours before in lie down. And keep the head of bed above 30 degrees to avoid the acid from going up. (7) Generalized anxiety disorder: Code(s): F41.1 - Generalized anxiety disorder Category: Medical Plan: Stable (8) Blood pressure elevated without history of HTN: Code(s): R03.0 - Elevated blood-pressure reading, without diagnosis of hypertension Category: Medical Plan - Monitor hypertension more closely with regular home blood pressure checks; if readings escalate, follow up is advised. - Continue current constipation regimen with daily docusate sodium. - Maintain Vitamin D at 2000 IU daily; follow up labs as needed. - Acid reflux management with dietary adjustments and monitoring. Consider medication if persistent symptoms. - Administer pneumonia vaccine today as per schedule. - Follow-up for thyroid function tests if symptoms of hypothyroidism emerge. During today's visit, we discussed the management of her blood pressure and emphasized the importance of regular monitoring. I reassured her about current blood pressure fluctuations and advised her to document home readings to discern a pattern. We reviewed her need for ongoing Vitamin D replacement and its efficacy in managing deficiency. I explained the role of dietary adjustments in managing reflux and provided anticipatory guidance on recognizing aggravating dietary factors. I acknowledged her past reaction to hypothyroid medication and recommended vigilance for recurrent symptoms. I communicated the preventive value of a pneumonia vaccination at her current age. I addressed her general health considerations, reinforcing the importance of maintaining physical activity as part of her wellness routine. - Continue monitoring blood pressure twice daily and record readings. - Maintain current constipation regimen with daily hydration. - Take Vitamin D 2000 IU daily as previously advised. - Monitor dietary triggers for reflux and aim for dietary modifications if necessary. - Report any new symptoms suggestive of hypothyroidism. - Follow up as needed based on blood pressure readings and any changes in health. - Receive the pneumonia vaccine as discussed today. - Ensure your physical activity and diet remain consistent for optimal health. Orders: Orders Thyroid Stimulating Hormone 3 Months E89.0 - Postprocedural hypothyroidism Thyroid Peroxidase Antibodies 3 Months E89.0 - Postprocedural hypothyroidism Thyroid Stimulating Immunoglob 3 Months E89.0 - Postprocedural hypothyroidism Comprehensive Met. Panel 3 Months E89.0 - Postprocedural hypothyroidism Vitamin B12 and Folate 3 Months E89.0 - Postprocedural hypothyroidism Free T4 (Free Thyroxine) Today E89.0 - Postprocedural hypothyroidism Pneumococcal 20 Immunization Today Z23 - Encounter for immunization Influenza [id number] Immunization Today Z23 - Encounter for immunization Free T4 (Free Thyroxine) 3 Months E89.0 - Postprocedural hypothyroidism Complete Blood Count Auto Diff 3 Months E89.0 - Postprocedural hypothyroidism Lipid Panel 3 Months E78.00 - Pure hypercholesterolemia, unspecified, E89.0 - Postprocedural hypothyroidism Vitamin D 25-OH Total 3 Months E89.0 - Postprocedural hypothyroidism
[2024-07-04 09:07] VITALS: BP 136/82; PULSE 60; O2SAT 96; BMI 28.9
== END 2024-07-04 09:53 | disposition home or self-care (01) ==
PROVIDERS: PCP Internal Medicine; Visit Provider Internal Medicine
DX: Z00.00 Encounter for general adult medical examination without abnormal findings (principal); C73 Malignant neoplasm of thyroid gland; E89.0 Postprocedural hypothyroidism; E78.00 Pure hypercholesterolemia, unspecified; E66.3 Overweight; K21.9 Gastro-esophageal reflux disease without esophagitis; F41.1 Generalized anxiety disorder; R03.0 Elevated blood-pressure reading, without diagnosis of hypertension; Z23 Encounter for immunization

== ENCOUNTER → 2024-07-04 09:05 | Outpatient (BNVA) | payer MEDICARE, SELFPAY | PROVIDERS: PCP Internal Medicine; Visit Provider Internal Medicine | DX: Z00.00 Encounter for general adult medical examination without abnormal findings (principal); I10 Essential (primary) hypertension; K59.00 Constipation, unspecified; C73 Malignant neoplasm of thyroid gland; E89.0 Postprocedural hypothyroidism; E78.00 Pure hypercholesterolemia, unspecified; E66.3 Overweight; K21.9 Gastro-esophageal reflux disease without esophagitis; F41.1 Generalized anxiety disorder; R03.0 Elevated blood-pressure reading, without diagnosis of hypertension; Z23 Encounter for immunization | CPT/HCPCS: 90471; 90677; 96127; 99397 ==

== ENCOUNTER 2024-09-05 09:39 | Outpatient (REF) | payer MEDICARE, SELFPAY ==
[2024-09-05 13:20] LABS: MANUAL DIFF FLAG NO
[2024-09-05 13:30] LABS: Basophils Percent Auto 0.4 % (0-2); Eosinophils Absolute Auto 0.2 X10*3/uL (0.0-0.4); Hematocrit 45.1 % (37.0-47.0); Hemoglobin 14.5 g/dl (12.0-16.0); Imm Gran Abs Auto 0.01 X10*3/uL (0.00-0.03); Imm Gran Pct Auto 0.1 % (0.0-0.4); Lymphocytes Absolute Auto 2.2 X10*3/uL (1.2-4.9); Lymphocytes Percent Auto 29.4 % (20-40); Mean Corpuscular HGB Conc 32.2 g/dl (31.0-35.0); Mean Corpuscular Hemoglobin 28.9 pg (27.0-33.0); Mean Platelet Volume 10.9 fL (9.4-12.3); Monocytes Absolute Auto 0.5 X10*3/uL (0.1-1.2); Monocytes Percent Auto 7.3 % (2-11); Neutrophils Absolute Auto 4.4 x10*3/uL (2.0-8.3); Neutrophils Percent Auto 59.8 % (45-73); Platelet Count 273 X10*3/uL (160-400); Red Blood Count 5.01 X10*6/uL (4.20-5.50); Red Cell Distribution Width 13.3 % (11.0-16.0); White Blood Count 7.4 X10*3/uL (4.8-10.8)
[2024-09-05 13:45] LABS: Alanine Aminotransferase 25 U/L (0-31); Albumin Level 4.1 g/dL (3.5-5.0); Alkaline Phosphatase 96 U/L (39-117); Anion Gap 10 (12-20); Aspartate Amino Transferase 22 U/L (5-31); Bilirubin Total 0.4 mg/dL (0.0-1.0); Blood Urea Nitrogen 14 mg/dL (9-16); Calcium 9.2 mg/dL (8.4-10.2); Carbon Dioxide 26 mmol/L (22-29); Chloride 108 mmol/L (96-108); Cholesterol 214 mg/dL (<200); Estimated Glomerular Filt Rate > 60; Glucose Random 85 mg/dL (60-115); HDL Cholesterol 70 mg/dL (>40); LDL Cholesterol Calculated 131 mg/dL (<100); Potassium 4.1 mmol/L (3.3-5.1); Sodium 140 mmol/L (135-145); Total Protein 7.2 g/dL (6.5-8.0); Triglycerides 67 mg/dL (<150)
[2024-09-05 14:03] LABS: Free T4 (Free Thyroxine) 1.36 ng/dL (0.71-1.85); Thyroid Stimulating Hormone 2.31 uIU/mL (0.32-4.0); Vitamin D 25-OH Total 86.7 ng/mL (>30)
[2024-09-05 14:09] LABS: Folate 8.5 ng/mL (> or = 4.0); Vitamin B12 659 pg/mL (200-900)
[2024-09-06 19:09] LABS: Thyroid Peroxidase Antibodies 1 IU/mL (<9)
[2024-09-10 15:58] LABS: Thyroid Stimulating Immunoglob 89 % baseline (<140)
== END 2024-09-05 09:40 | disposition home or self-care (01) ==
LOC: HO.HMGCLDS 09:39
PROVIDERS: PCP Internal Medicine; Visit Provider Internal Medicine
DX: E89.0 Postprocedural hypothyroidism (principal); E78.00 Pure hypercholesterolemia, unspecified
CPT/HCPCS: 36415; 80053; 80061; 82306; 82607; 82746; 84439; 84443; 84445; 85025; 86376

== ENCOUNTER 2024-11-18 15:27 | Outpatient (AMB) | payer MEDICARE, SELFPAY ==
--- NOTE | 2024-11-18 15:28 | A.OFFPC_ITS ---
Intake Visit Reasons: Stye on eyelid Allergies thyrotropin [Thyrogen] Allergy (Unknown, Verified 11/18/24 15:28) Rash Tobacco use date assessed: 11/18/24 Fall risk assessment: No Falls in past year Last assessed Fall Risk: 11/18/24 Dental Screening Dental Screen Date: 11/18/24 Did you have a dental visit in the last 12 months?: Yes Did you have a dental problem in the last 6 months where you did not have access to dental care?: No Was dental information given to patient?: Patient has dentist [facility] Medical History (Updated 11/18/24 @ 18:17 by Hever Solis MD) Obesity (BMI 30-39.9) Overweight (BMI 25.0-29.9) Osteopenia Hurthle cell carcinoma of thyroid GERD (gastroesophageal reflux disease) Hypercholesterolemia Generalized anxiety disorder Postsurgical hypothyroidism Surgical History H/O toe surgery H/O tubal ligation History of hip replacement History of tonsillectomy Family History (Updated 07/04/24 @ 09:07 by MARLEN Aponte) Paternal Grandfather Heart problem Maternal Grandfather Throat cancer Liver cancer Alcohol abuse Social History Housing: House Alcohol intake: current Comment: once a week 2 drinks Patient Tobacco Use Status: Never used Tobacco Tobacco use type: Cigarette e-Cigarette/Vaping Use: Never Used Second Hand Smoke Exposure: No service: No Current occupational status: employed Cognitive needs: No Hearing needs: No Vision needs: No Questionnaire Thrive Questionnaire Date Thrive assessed: 07/04/24 CRISTINO-7 AMB Questionnaire CRISTINO-7 Date CRISTINO - 7 assessed: 07/04/24 Source: Developed by Drs. Houston Justice, Jia Marmolejo, Iker Acosta and colleagues, with an educational jonel from [employer]. Physical exam (Primary Care) Tobacco/Smoking Status: Tobacco use Status Tobacco use date assessed 11/18/24 11/18/24 15:29 Patient Tobacco Use Status Never used Tobacco 11/18/24 15:29 Tobacco use type Cigarette 11/18/24 15:29 e-Cigarette/Vaping Use Never Used 11/18/24 15:29 Thrive Assessment: Date of Thrive Assessment Date Thrive assessed 07/04/24 11/18/24 15:29 Const Other: Telehealth video showing right eye mid upper lid swelling and mild redness Telehealth Telehealth Telehealth Platform: Telephone Location of provider rendering services: practice address Location of patient: address on file Patient Identification confirmed using: Name, : Yes Telehealth method: video Patient verbally consented to treatment: Yes Patient verbally consented to billing insurance company: Yes Patient informed of any privacy concerns related to visit: Yes Minutes spent on Phone/Video with Pt.: 15 Coding Level of Care Code Est Pt Level 3 (99263) Diagnoses Hordeolum externum of right eye H00.013 Assessment & Plan Assessment & Plan (1) Hordeolum externum of right eye: Code(s): H00.013 - Hordeolum externum right eye, unspecified eyelid Category: Medical Plan: History of Present Illness The patient is a 63-year-old female presenting with a hordeolum on the upper right eyelid. She initially noted the sore spot over two weeks ago on Monday. Despite an initial lack of consistent treatment with warm compresses, she has been applying them three times daily for the last four days without significant improvement. The hordeolum persists without notable alteration in size. The patient has made efforts to manage the condition with home care measures, specifically warm compresses, reporting no improvement thus far. Review of Systems - Eyes: Reports hordeolum on the upper right eyelid. - General: Denies other acute symptoms. Plan I prescribed an antibiotic ointment for the patient's hordeolum and recommended its local pickup at [facility] in [facility]. Continual use of warm compresses is advised. If the condition does not improve within one week, office system analyst intervention may be necessary. Patient was informed and verbally consented to the use of an ambient scribe for clinic note documentation during this visit. Discussion Notes I discussed with the patient that the hordeolum was not responding to initial conservative treatment with warm compresses, hence the prescription for an antibiotic ointment. I explained the possibility of requiring procedural intervention should the condition not improve and addressed the importance of continued home care with warm compresses. The patient was informed about follow- up actions, including contacting me or an office system analyst if no improvement is observed. Local pharmacy options were reviewed, and she agreed to retrieve the medication from a [facility] pharmacy in [place]. All concerns regarding treatment and follow-ups were addressed. Patient Instructions - Apply the antibiotic ointment to the affected eyelid as prescribed. - Continue using warm compresses on the eyelid multiple times a day. - plant maintenance supervisor the ointment at the [facility] on [facility]. - Contact me if there is no improvement within one week. - Follow up with an office system analyst if additional intervention is required. Medications: New erythromycin 0.5 inches ophthalmic (eye) TID 3.5 grams 0RF H00.13 - Chalazion right eye, unspecified eyelid Patient Instructions: Discussed the importance of hot compresses 4 times a day. Antibiotic ointment prescribed. If not any better in a couple of weeks will need ophthalmology
== END 2024-11-18 17:15 | disposition home or self-care (01) ==
LOC: HO.HMCH 15:27
PROVIDERS: PCP Internal Medicine; Visit Provider Internal Medicine
DX: H00.013 Hordeolum externum right eye, unspecified eyelid (principal)

== ENCOUNTER → 2024-11-18 15:27 | Outpatient (BNVA) | payer MEDICARE, SELFPAY | PROVIDERS: PCP Internal Medicine; Visit Provider Internal Medicine | DX: H00.011 Hordeolum externum right upper eyelid (principal) | CPT/HCPCS: 99212 ==

== ENCOUNTER 2025-05-20 10:15 | Outpatient (REF) | payer MEDICARE, SELFPAY ==
--- NOTE | ~2025-05-20 | MM_ITS ---
EXAMINATION: MM SCREENING DIGITAL BREAST TOMOSYNTHESIS, BILATERAL CLINICAL INFORMATION: Screening. Asymptomatic. COMPARISON: Comparison made to multiple prior, most recent May 17, 2024, and most remote March 21, 2020. TECHNIQUE: Digital breast tomosynthesis is performed in mediolateral oblique and craniocaudal views along with computer-aided detection (CAD). Synthesized 2D images are generated from the tomosynthesis. FINDINGS: BREAST COMPOSITION: There are scattered areas of fibroglandular density. BILATERAL BREASTS: No significant masses, suspicious calcifications or other abnormalities are seen in either breast. MM/MM tomosynthesis screening BI IMPRESSION: BILATERAL BREASTS: Negative, no mammographic evidence of malignancy. Normal interval follow-up is recommended in 12 months. ASSESSMENT: BI-RADS: Category 1: Negative RECOMMENDATION: Routine annual mammography screening. FOLLOW-UP: 1 year F/U This examination should not preclude the clinical evaluation of a suspicious palpable abnormality. This patient's information was entered into a reminder system with a target due date for their next mammogram. Electronically signed by: Ilir Cope MD 05/21/2025 07:29 PM [facility]
== END 2025-05-20 10:16 | disposition home or self-care (01) ==
LOC: HO.MAMMO 10:15
PROVIDERS: PCP Internal Medicine; Visit Provider Obstetrics & Gynecology
DX: Z12.31 Encounter for screening mammogram for malignant neoplasm of breast (principal)
CPT/HCPCS: 77063; 77067

== ENCOUNTER → 2025-05-20 10:15 | Outpatient (BNV) | payer MEDICARE, SELFPAY | PROVIDERS: PCP Internal Medicine; Visit Provider Radiology Body Imaging | DX: Z12.31 Encounter for screening mammogram for malignant neoplasm of breast (principal) | CPT/HCPCS: 77063; 77067 ==

== ENCOUNTER 2025-07-07 10:16 | Outpatient (AMB) | payer MEDICARE, SELFPAY ==
[2025-07-07 10:30] VITALS: BP 130/70; PULSE 64; O2SAT 97; BMI 29.6
--- NOTE | 2025-07-07 10:30 | A.OFFPC_ITS ---
Vital Signs 07/07/25 10:30 Height 5 ft 3 in Weight 167 lb 2 oz BMI 29.6 BP 130/70 Blood Pressure Location Lt brachial Position Sitting Pulse 64 Pulse Source Pulse Oximeter Pulse Oximetry (%) 97 Oxygen Delivery Method Room Air Intake Visit Reasons: PE - see comments Museum Registrar Required: No Accompanied by: Self / Same As Patient Allergies thyrotropin (Thyrogen) Allergy (Unknown, Verified 07/07/25 10:31) Rash Medication List - Last Reconciled 07/07/25 by Hever Solis MD calcium carbonate (Alcalak) 168 mg PO .QD cholecalciferol (vitamin D3) 50 mcg PO DAILY docusate sodium 100 mg PO DAILY Lactobacillus combo no.23 (Berto Probiotic) cells PO levothyroxine (Levoxyl) 88 mcg PO DAILY omega-3 fatty acids 1,000 mg PO DAILY vitamin B complex (B Complex-Vitamin B12 tablet) 1 tab PO DAILY Tobacco use date assessed: 07/07/25 Fall risk assessment: 1 Fall in past year Last assessed Fall Risk: 07/07/25 Dental Screening Dental Screen Date: 07/07/25 Did you have a dental visit in the last 12 months?: Yes Did you have a dental problem in the last 6 months where you did not have access to dental care?: No Was dental information given to patient?: Patient has dentist HPI PE - see comments HPI Details pressure on the eye and will be seeing ophthalmology HPI Comments History of Present Illness Details History of Present Illness The patient is a 64-year-old overweight female presenting for a physical exam. Her past medical history is significant for hypothyroidism, hypercholesterolemia, generalized anxiety disorder, GERD, and a history of Hurthle cell carcinoma of the thyroid in 2001. She also has osteopenia, with her last bone density scan in July 2023 showing normal results. 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 She is awaiting a referral to [facility] for further evaluation of potential interventions. She has a history of a chalazion on the right upper lid treated with a dexamethasone injection, which has since resolved. She also has a history of meibomian gland dysfunction and squamous blepharitis, and uses eyelid scrubs daily. Her lab work from August 2024 was largely normal, including a complete blood count, electrolytes, renal function, blood sugar, liver function, B12, vitamin D, folic acid, and thyroid levels. Her cholesterol was mildly elevated, with an LDL of 131 mg/dL and an HDL of 70 mg/dL. For health screenings, her last colonoscopy was in January 2020, which found a tubular adenoma, making her due for a follow-up. Her next mammogram is scheduled for May 2025. She is up-to-date on her flu, COVID, shingles, tetanus, and pneumonia vaccinations. The patient's current medications include calcium, vitamin D, docusate sodium as needed, omega-3 supplements, a probiotic, levothyroxine 88 mcg, and a vitamin B complex. She was using an allergy nasal spray but was advised to discontinue it. She has a known allergy to thyrotropin (Thyrogen). She reports new onset of right-hand numbness, primarily occurring while reading in bed but also at other times, which is suggestive of carpal tunnel syndrome. She also reports chronic issues with bowel movements, nocturia of 1-2 times per night, and a recent weight gain of 3-4 pounds. Health Maintenance - Labs: A request for fasting blood work was provided, to be completed in two months to monitor cholesterol and other parameters. - Cardiovascular Health: The patient's L DL goal is less than 130 mg/dL and triglyceride goal is less than 150 mg/dL. - Breast Cancer Screening: The patient i s up to date, with her next mammogram scheduled for May 2025. - Colon Cancer Screening: The patient's last colonoscopy was in 2019, and she is due for a repeat screening every five years due to a history of tubular adenoma. A referral will be sent. - Bone Density Screening: Her last bone density scan was in July 2023 and was within the normal range, so no further testing is required at this time. - Vaccinations: The patient is up to allie e on her vaccinations, including i nfluenza, COVID-19, shingles (two shots), tetanus, and pneumonia. - Lifestyle: The patient was advised to continue with diet and exercise. - Substance Use: The patient was housing counselor ed to limit alcohol intake to one drink per occasion due to emerging research on its health effects. Social History - Employment: The patient is a teacher a nd a appeals writer. - Alcohol Use: The patient reports drink ing alcohol a couple of times per month, with one to two drinks per occasion. - Tobacco Use: The patient denies ever s moking cigarettes. - Illicit Drug Use: The patient denies a ny recreational drug use. - Nutrition: The patient tries to drink 8-10 cups of water per day. - Housing: The patient lives in [facility]. Results - Labs (August 2024): - CBC: Normal, no anemia. - CMP: Normal electrolytes, renal functi on, blood sugar, and liver function. - Lipid Panel: LDL was 131 mg/dL (mildly elevated), HDL was 70 mg/dL. - Other: Vitamin B12, vitamin D, folic a kulwinder, and thyroid function were all within normal limits. - Tests and Diagnostics: - Colonoscopy (January 2020): Revealed a tu bular adenoma. - Bone Density Scan (July 2023): Resu lts were within the normal range. [facility] Medical History (Updated 07/07/25 @ 10:59 by Hever Solis MD) Obesity (BMI 30-39.9) Overweight (BMI 25.0-29.9) Osteopenia Hurthle cell carcinoma of thyroid GERD (gastroesophageal reflux disease) Hypercholesterolemia Generalized anxiety disorder Postsurgical hypothyroidism Surgical History H/O toe surgery H/O tubal ligation History of hip replacement History of tonsillectomy Family History Paternal Grandfather Heart problem Maternal Grandfather Throat cancer Liver cancer Alcohol abuse Social History Housing: House Alcohol intake: current Comment: once a week 2 drinks Patient Tobacco Use Status: Never used Tobacco Tobacco use type: Cigarette e-Cigarette/Vaping Use: Never Used Second Hand Smoke Exposure: No service: No Current occupational status: employed Cognitive needs: No Hearing needs: No Vision needs: No Questionnaire PHQ-9 Over the last 2 weeks, how often have you been bothered by any of the following problems? 1. Little interest or pleasure in doing things: several days 2. Feeling down, depressed, or hopeless: not at all 3. Trouble falling or staying asleep, or sleeping too much: not at all 4. Feeling tired or having little energy: several days 5. Poor appetite or overeating: not at all 6. Feeling bad about yourself - or that you are a failure or have let yourself or your family down: not at all 7. Trouble concentrating on things, such as reading the newspaper or watching television: not at all 8. Moving or speaking so slowly that other people could have noticed. Or the opposite - being so fidgety or restless that you have been moving around a lot more than usual: not at all 9. Thoughts that you would be better off or of hurting yourself in some way: not at all Total score: 2 Source: Developed by Drs. Houston Justice, Jia Marmolejo, Iker Acosta and colleagues, with an educational jonel from [employer]. Thrive Questionnaire Date Thrive assessed: 07/07/25 I am a: Patient What is your living situation today?: I have a steady place to live Within the past 12 months, did the food you bought not last and you didn't have the money to get more?: Never true Within the past 12 months, did you worry whether your food would run out before you got money to buy more?: Never true Do you have trouble paying for medicines?: No Do you have trouble getting transportation to medical appointments?: No Do you have trouble paying your heating and electricity bill?: No Do you have trouble taking care of your child, family member or friend?: No Do you have trouble with day-to-day activities such as bathing, preparing meals, shopping, managing finances, etc.?: No Are you currently unemployed and looking for a job?: No Are you interested in more education?: No Please select the resources that you would like help with: None Currently or been in a relationship where the following occur: No concerns reported THRIVE Score: 0 AUDIT C Alcohol Use Questionnaire (AUDIT-C) 1. How often do you have a drink containing alcohol?: 2-4 times a month 2. How many drinks containing alcohol do you have on a typical day when you are drinking?: 1 or 2 3. How often do you have six or more drinks on one occasion?: Never Total Score: 2 CRISTINO-7 AMB Questionnaire CRISTINO-7 Date CRISTINO - 7 assessed: 07/07/25 Feeling nervous, anxious, or on edge: 1 = Several days Not being able to stop or control worryin = Several days Worrying too much about different things: 0 = Not at all Trouble relaxin = Several days Being so restless that it is hard to sit still: 0 = Not at all Becoming easily annoyed or irritable: 1 = Several days Feeling afraid as if something awful might happen: 0 = Not at all Total CRISTINO-7 score (0-4 normal; 5-9 mild; 10-14 moderate; 15-21 severe): 4 Source: Developed by Drs. Houston Justice, Jia Marmolejo, Iker Acosta and colleagues, with an educational jonel from [employer]. Review of Systems Narrative Review of Systems - General: Denies fever. Reports weight gain of 3-4 pounds. - Eyes: Reports progressive glaucoma with peripheral vision loss. - Ears, Nose, Throat: Reports good hearing. Denies problems swallowing or coughing while eating. Reports some sensitivity inside one ear when inserting earplugs. - Cardiovascular: Denies chest pain, heaviness, or discomfort. Denies waking up short of breath. Reports ability to climb stairs without issue. - Gastrointestinal: Denies nausea or vomiting. Reports improvement in heartburn with dietary changes (low-acid orange juice). Acknowledges chronic problems with bowel movements but states it's currently managed. Denies blood in stool. - Genitourinary: Reports nocturia once or twice per night. Reports slow urinary stream with trickling. Denies urinary leakage. - Neurological: Reports numbness in her right hand, particularly when reading in bed. Denies dizziness or syncope. - Musculoskeletal/Extremities: Reports occasional ankle swelling at the end of the day. Const Denies poor appetite and Denies weakness Eyes Denies no additional complaints ENT Reports Normal hearing present, Denies dizziness, Denies nasal congestion, Denies tinnitus and Denies sore throat Card Denies chest pain, Denies syncope, Denies rapid heart rate and Denies dyspnea Resp Denies cough and Denies dyspnea GI Denies change in stool character, Reports constipation, Denies diarrhea, Denies nausea and Denies vomiting Denies urinary frequency, Denies difficulty voiding and Denies dysuria Neuro Reports Normal hearing present, Denies confusion, Denies dizziness, Denies syncope and Denies weakness Psych Denies confusion Physical exam (Primary Care) Vital Signs: Last Vital Signs Pulse 64 07/07/25 10:30 BP 130/70 07/07/25 10:30 Pulse Ox 97 07/07/25 10:30 Oxygen Delivery Method Room Air 07/07/25 10:30 BMI result Body Mass Index 29.6 Tobacco/Smoking Status: Tobacco use Status Tobacco use date assessed 07/07/25 07/07/25 10:38 Patient Tobacco Use Status Never used Tobacco 07/07/25 10:38 Tobacco use type Cigarette 07/07/25 10:38 e-Cigarette/Vaping Use Never Used 07/07/25 10:38 PHQ-9: PHQ-9 Score PHQ-9: Total score 2 07/07/25 10:46 Thrive Assessment: Date of Thrive Assessment Date Thrive assessed 07/07/25 07/07/25 10:38 Currently or been in a relationship where the following occur: No concerns reported Narrative Physical Exam General: Cooperative, healthy appearing, comfortable, no acute distress and well developed Orientation: Patient oriented x3 Limitations: No limitations Head: Normal to inspection Ears: Hearing grossly normal bilaterally, but reports sensitivity in the right ear when using earplugs Nose: Normal external nose present Face and sinus: Normal facial exam Eyes: Appearance normal, both eyes and all related structures; history of glaucoma with progressive peripheral vision loss Neck: Normal visual inspection and Yes full ROM Respiratory: Normal respiratory effort and able to speak in complete sentences. Clear to auscultation bilaterally Cardiovascular: Regular rate and rhythm. Normal S1 and S2 GI: Normal to inspection. Soft to palpation and nontender Skin: No rashes or lesions noted Neuro: Patient oriented x3; reports numbness in the right hand, likely due to carpal tunnel syndrome Extremities: Normal to inspection; reports occasional swelling in the ankles at the end of the day Const General: No confusion Orientation/consciousness: No confusion Neuro General: No confusion Cranial nerves: Yes Normal hearing present Coding Level of Care Code Est Pt Prev Care >65y(14490) Diagnoses Annual physical exam Z00.00 Hurthle cell carcinoma of thyroid C73 Postsurgical hypothyroidism E89.0 Overweight (BMI 25.0-29.9) E66.3 Hypercholesterolemia E78.00 Generalized anxiety disorder F41.1 Gastroesophageal reflux disease without esophagitis K21.9 Esophagitis presence: without esophagitis Tubular adenoma of colon D12.6 Numbness of right hand R20.0 Assessment & Plan Assessment & Plan (1) Annual physical exam: Code(s): Z00.00 - Encounter for general adult medical examination without abnormal findings Category: Medical Plan: Patient is advised to eat healthy, keep well hydrated, keep active and have adequate sleep. (2) Hurthle cell carcinoma of thyroid: Comment: [facility] 2001 Code(s): C73 - Malignant neoplasm of thyroid gland Category: Medical Plan: Continuing to monitor (3) Postsurgical hypothyroidism: Code(s): E89.0 - Postprocedural hypothyroidism Category: Medical Plan: Blood work is requested. Continue with thyroid medication (4) Overweight (BMI 25.0-29.9): Code(s): E66.3 - Overweight Category: Medical Plan: Continue with diet and exercise (5) Hypercholesterolemia: Code(s): E78.00 - Pure hypercholesterolemia, unspecified Category: Medical Plan: Avoid fried foods, chicken skin, eggs, butter margarine, pastries and meat. Be it pork or beef they have a lot of cholesterol LDL goal of less than 130 and triglyceride of less than 150 (6) Generalized anxiety disorder: Code(s): F41.1 - Generalized anxiety disorder Category: Medical Plan: Stable (7) GERD (gastroesophageal reflux disease): Code(s): K21.9 - Gastro-esophageal reflux disease without esophagitis Category: Medical Qualifiers: Esophagitis presence: without esophagitis Qualified Code(s): K21.9 - Gastro-esophageal reflux disease without esophagitis Plan: Avoid the foods that causes that usually spicy foods, tomato products, juices, coffee, soda and foods that your sensitive to. After eating do not lie down, allow 3-4 hours before in lie down. And keep the head of bed above 30 degrees to avoid the acid from going up. (8) Tubular adenoma of colon: Code(s): D12.6 - Benign neoplasm of colon, unspecified Category: Medical (9) Numbness of right hand: Code(s): R20.0 - Anesthesia of skin Category: Medical Plan Plan Patient was informed and verbally consented to the use of an ambient scribe for clinic note documentation during this visit. 1. Wellness Visit The patient is a 64-year-old female here for a routine physical exam. She is up-to-date on her immunizations, including flu, COVID, shingles, tetanus, and pneumonia. A fasting blood work request was provided to be completed in two mo [facility]. The patient was counseled to continue with diet and exercise and to limit alcohol consumption to one drink per sitting. 2. Hypercholesterolemia The patient's LDL cholesterol was mildly elevated at 131 mg/dL on her last labs, with a goal of less than 130 mg/dL. Her HDL is protective at 70 mg/dL. The plan is to continue monitoring and recheck her lipid panel with the next set of fasting labs in two months. 3. Glaucoma The patient reports a diagnosis of progressive glaucoma with peripheral vision loss, as identified by her global marketing specialist. She is awaiting a referral to an slotter operator helper for further management. Due to the risk of increased intraocular pressure, she has been advised to discontinue her steroid nasal spray and switch to an oral antihistamine like Claritin or Zulema for her allergies. For associated blepharitis, a cost-effective hygiene method using baby shampoo was recommended. 4. History Of Tubular Adenoma Of Colon The patient had a colonoscopy in 2019 which showed a tubular adenoma. As she is due for a repeat screening every five years, a referral will be placed for a follow-up colonoscopy. 5. 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 Conservative treatment was recommended, including wearing a wrist splint at night to maintain a neutral position. The patient was advised to follow up if symptoms do not improve or worsen, as further testing may be needed to prevent nerve damage. 6. Hypothyroidism The patient's hypothyroidism is stable, with normal thyroid function tests on recent labs. She will continue her current dose of levothyroxine 88 mcg daily. Discussion Notes I reviewed the patient's recent lab work from August, highlighting that her blood count, kidney function, and thyroid levels were all normal. We discussed the mild elevation in her LDL cholesterol to 131 mg/dL, and I noted that her high HDL of 70 mg/dL is protective. I provided a request for fasting blood work to be done in two months to re-evaluate. We addressed her progressive glaucoma and the associated peripheral vision loss, and I recommended she stop her steroid nasal spray due to its potential to increase intraocular pressure, suggesting she switch to an oral antihistamine. I explained that her right-hand numbness is likely carpal tunnel syndrome and recommended conservative treatment with a nighttime wrist brace, emphasizing the need to follow up if it worsens to avoid permanent nerve damage. I also informed her that a referral would be placed for her five-year surveillance colonoscopy. We discussed lifestyle factors, including her alcohol intake, and I advised limiting it to one drink per occasion based on current health guidelines. I confirmed she is up to date with all her recommended vaccinations. Patient Instructions - Get fasting blood work done in about two months. The lab request has been provided. - Stop using your steroid allergy nasal spray. You can switch to an [id number] allergy pill like Claritin or Zulema for your allergy symptoms. - A referral will be sent for you to schedule a colonoscopy, as you are due for this screening. - For the numbness in your right hand, wear a wrist splint or brace at night. You can buy one [id number]. Let us know if the numbness does not get better or gets worse. - Follow up with the slotter operator helper (radiosonde specialist) for your glaucoma. Their office should call you to schedule the appointment. - For cleaning your eyelids, you can use a small amount of no-tear baby shampoo mixed with water as a less expensive option to the eyelid scrubs. - Continue taking your thyroid medication (Levothyroxine 88 mcg) every day. - Continue with your healthy diet and stay active. - Limit alcohol to no more than one drink on occasions when you drink. Orders: Orders Free T4 (Free Thyroxine) 2 Months E89.0 - Postprocedural hypothyroidism Lipid Panel 2 Months E78.00 - Pure hypercholesterolemia, unspecified, E89.0 - Postprocedural hypothyroidism Vitamin B12 and Folate 2 Months E89.0 - Postprocedural hypothyroidism Complete Blood Count Auto Diff 2 Months E89.0 - Postprocedural hypothyroidism Comprehensive Met. Panel 2 Months E89.0 - Postprocedural hypothyroidism Thyroid Stimulating Hormone 2 Months E89.0 - Postprocedural hypothyroidism Vitamin D 25-OH Total 2 Months E89.0 - Postprocedural hypothyroidism Referrals Gastroenterology Referral D12.6 - Benign neoplasm of colon, unspecified
--- OUTSIDE RECORDS SUMMARY | 2025-07-07 12:26 | XMS_ITS | Clinical Summary ---
Author Organization [facility] Address [address] [place] [id number] Care Team Providers Care Card Room Manager Name Role Phone Hever Solis Unavailable Danisha Velasco MD Unavailable [phone] Po, Lavonnelizandro Primary Care Provider [phone] Allergies Active Allergy Reactions Criticality Noted Date Comments Thyrotropin Godfrey Rash,Other (See Comments) Level of certainty: Moderately Certain; Other Reaction(s): rash chest and upper arms Medications lactobacillus combination no.4 (PROBIOTIC) 3 billion cell cap capsule (oral) oral 6 Active cholecalciferol, vitamin D3, 25 mcg (1,000 unit) capsule 1 (One) capsule(s) by mouth once a day 8 Active fluticasone propionate (FLONASE ALLERGY RELIEF) 50 mcg/actuation nasal spray 2 (Two) puffs per nostril once a day 6 Active calcium-vitamin D3-vitamin K (VIACTIV) 500-500-40 mg-unit-mcg Chew 1 (One) Tablet(s) by mouth once a day 1 Active B complex vitamins capsule Take 1 capsule by mouth once a week. 4 Active docusate sodium (COLACE) 100 MG capsule Take 2 capsules (200 mg total) by mouth daily with dinner. 4 Active omega-3 fatty acids/fish oil (fish oil-omega-3 fatty acids) 300-1,000 mg capsule Take 2 capsules (2 g total) by mouth in the morning. Active levothyroxine (SYNTHROID, LEVOXYL) 100 MCG tablet Take 1 tablet (100 mcg total) by mouth every morning. Take 1/2 tablet once weekly. 90 tablet 4 Active Active Problems Problem Noted Date Diagnosed Date History of thyroid cancer 05/10/2024 Postsurgical hypothyroidism 05/10/2024 Osteopenia 05/10/2024 Vitamin D deficiency 05/10/2024 Encounters Date Type Department Care Team Description 06/16/2025 9:29 AM EST - 06/16/2025 11:59 PM EST Hospital Encounter [facility] Radiology [address] [place] [address] [address] [place] [address] Danisha Velasco MD History of thyroid cancer Discharge Disposition: Home or Self Care 05/12/2025 Orders Only [facility] Endocrinology [facility] [address] [place] [address], [address] [place] [address] Danisha Velasco MD History of thyroid cancer (Primary Dx) 05/05/2025 11:30 AM EDT Lab [facility] Draw Station [facility] [address] [place] [address], 1[address] [place] [address] Danisha Velasco MD Postsurgical hypothyroidism; History of thyroid cancer; Osteopenia, unspecified location; Vitamin D deficiency 05/05/2025 11:00 AM EDT Office Visit [facility] Endocrinology [facility] [address] [place] [address], [address] [place] [id number] Danisha Vealsco MD Postsurgical hypothyroidism (Primary Dx); Osteopenia, unspecified location; Vitamin D deficiency; History of thyroid cancer from Last 3 Months Social History Tobacco Use Types Packs/Day Years Used Date Smoking Tobacco: Never Assessed Comments Unknown Sex and Gender Information Value Date Recorded Sex Assigned at Female 08/31/2023 11:49 PM EST Legal Sex Female 12:09 AM EST Gender Identity Female 08/31/2023 11:49 PM EST Sexual Orientation Not on file Last Filed Vital Signs Vital Sign Reading Time Taken Comments Blood Pressure 114/74 05/05/2025 10:49 AM EDT Pulse 60 05/05/2025 10:49 AM EDT Temperature - - Respiratory Rate - - Oxygen Saturation 97% 05/05/2025 10:49 AM EDT Inhaled Oxygen Concentration - - Weight 76.4 kg (168 lb 8 oz) 05/05/2025 10:49 AM EDT w/shoes Height 161.6 cm (5' 3.63 ) 05/05/2025 10:49 AM E DT w/shoes Body Mass Index 29.26 05/05/2025 10:49 AM EDT Plan of Treatment Upcoming Encounters Date Type Department Care Team (Late st Contact Info) Description 05/18/2026 11:00 AM EST Office Visit [facility] Endocrinology [facility] [address] [facility], [address] [place] [address] Danisha Velasco MD [address] [place] [address] In Person with Physician Health Maintenance Due Date Last Done Comments Hemoglobin A1c 1958 Lipid Panel 1958 Depression Screening 1970 Hepatitis C Screening 1976 DTaP,Tdap,and Td Vaccines (1 - Tdap) 1977 Breast Cancer Screening 1998 CT Colonography 12/16/2003 Colonoscopy 12/16/2003 Colorectal Cancer Screening 12/16/2003 FIT 12/16/2003 FOBT 12/16/2003 Multitarget Stool DNA (Cologuard) 12/16/2003 Sigmoidoscopy 12/16/2003 Pneumococcal Vaccine: 50+ Years (1 of 1 - PCV) 2008 Zoster Vaccine (1 of 2) 2008 Osteoporosis Screening 12/16/2023 COVID-19 Vaccine (1 - season) 2025 Influenza Vaccine (#1) 2025 Blood Pressure 05/05/2026 05/05/2025 TSH Level 05/05/2026 05/05/2025, 04/17, 05/01/2023, Additional history exists Meningococcal B Vaccines Aged Out No longer eligible based on patient's age to complete this topic Meningococcal Vaccines Aged Out No lo nger eligible based on patient's age to complete this topic Procedures Procedure Name Priority Date/Time Associated Diagnosis Comments US THYROID Routine 06/16/2025 9:57 AM EST History of thyroid cancer MAGNESIUM Routine 05/05/2025 11:25 AM EDT Osteopenia, unspecified location PTH, INTACT Routine 05/05/2025 11:25 AM EDT Osteopenia, unspecified location PTH, INTACT Routine 05/05/2025 11:25 AM EDT Osteopenia, unspecified location VITAMIN D,25OH Routine 05/05/2025 11:25 AM EDT Vitamin D deficiency ALBUMIN Routine 05/05/2025 11:25 AM EDT Osteopenia, unspecified location CALCIUM Routine 05/05/2025 11:25 AM EDT Osteopenia, unspecified location THYROGLOBULIN PANEL Routine 05/05/2025 1 1:25 AM EDT History of thyroid cancer T4, FREE Routine 05/05/2025 11:25 AM EDT Postsurgical hypothyroidism TSH Routine 05/05/2025 11:25 AM EDT Postsurgical hypothyroidism from Last 3 Months Results * US Thyroid (06/16/2025 9:57 AM EST) Anatomical Region Laterality Modality Neck Ultrasound 06/16/2025 11:4 1 AM EST Impressions 06/16/2025 11:57 AM EST Normal post thyroidectomy ultrasound exam with no evidence for local recurrence. Parisa GRANT et al. ACR Thyroid Imaging, Reporting and Data System (TI-RADS): White Paper of the ACR TI-RADS Committee. J Am Kirsty Radiol. 2017 November;14(5):587-595. doi: 10.1016/[email or web address]. BY ELECTRONICALLY SIGNING THIS REPORT, I THE ATTENDING PHYSICIAN ATTEST THAT I HAVE REVIEWED THE IMAGES FOR THE ABOVE PROCEDURE(S) AND AGREE WITH THE FINDINGS DOCUMENTED. 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 Recent Tg was measurable at 0.4. Re-evaluate for recurrence.; TECHNIQUE: Rhodes scale, cine clips and color Doppler ultrasound images of the neck were obtained. COMPARISON: Multiple thyroid ultrasounds most recent 01 February 2021 FINDINGS: The patient is status post thyroidectomy. Sagittal and transverse images were obtained of the surgical thyroid bed bilaterally. No soft tissue mass or lymphadenopathy is visualized. Focused images were obtained of level IA and bilateral levels II, III, and IV. Again noted within the lower pole of the right thyroid bed is a 3 x 2 x 3 mm cystic structure previously measuring up to 3 mm. Morphologically normal lymph nodes are seen bilaterally in the neck. No suspicious lymph nodes are identified. 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 Recent Tg was measurable at 0.4. Re-evaluate for recurrence.; TECHNIQUE: Rhoeds scale, cine clips and color Doppler ultrasound images of the neck were obtained. COMPARISON: Multiple thyroid ultrasounds most recent 01 February 2021 FINDINGS: The patient is status post thyroidectomy. Sagittal and transverse images were obtained of the surgical thyroid bed bilaterally. No soft tissue mass or lymphadenopathy is visualized. Focused images were obtained of level IA and bilateral levels II, III, and IV. Again noted within the lower pole of the right thyroid bed is a 3 x 2 x 3 mm cystic structure previously measuring up to 3 mm. Morphologically normal lymph nodes are seen bilaterally in the neck. No suspicious lymph nodes are identified. IMPRESSION: Normal post thyroidectomy ultrasound exam with no evidence for local recurrence. Parisa GRANT et al. ACR Thyroid Imaging, Reporting and Data System (TI-RADS): White Paper of the ACR TI-RADS Committee. J Am Kirsty Radiol. 2017 November;14(5):587-595. doi: [email or web address]/[email or web address]. BY ELECTRONICALLY SIGNING THIS REPORT, I THE ATTENDING PHYSICIAN ATTEST THAT I HAVE REVIEWED THE IMAGES FOR THE ABOVE PROCEDURE(S) AND AGREE WITH THE FINDINGS DOCUMENTED. Gemma Rubalcava RDMS , Lisa Calix MD, electronically signed on Jun 16 2025 11:57AM Danisha Velasco MD IMG US ORDERABLES Final Result * Vitamin D, 25-OH (05/05/2025 11:25 AM EDT) `Vitamin D 25-OH Level 35 30 - 60 ng/mL 05/05/2025 3:06 PM EDT [facility] Blood PERIPHERAL BLOOD SPECIMEN / Unknown Venipuncture / Unknown 05/05/2025 11:25 AM EDT 05/05/2025 11:25 AM EDT Danisha Velasco MD LAB BLOOD ORDERABLES Fi nal Result [facility] [address] [place] [address], * (ABNORMAL) Thyroglobulin Panel (05/05/2025 11:25 AM EDT) Anti-Thyroglobuli n Antibody <1 < or = 1 IU/mL 05/06/2025 5:00 PM EDT [facility] Thyroglobulin 0.4(L) ng/mL 05/06/2025 5:00 PM EDT [facility] Comment: Reference Range: Intact Thyroid 2.8-40.9 Athyrotic <0.1 Note: Abnormal flagging is based on the reference interval for patients with intact thyroid. This test was performed using the Kary Ze chemiluminescent method. Values obtained from different assay methods cannot be used interchangeably. Thyroglobulin levels, regardless of value, should not be interpreted as absolute evidence of the presence or absence of disease. For additional information, please refer to http://education.Cook Taste Eat.Presstler/faq/HHB811 (This link is being provided for informational/ educational purposes only.) Blood PERIPHERAL BLOOD SPECIMEN / Unknown Venipuncture / Unknown 05/05/2025 11:25 AM EDT 05/05/2025 11:25 AM EDT Narrative [facility] - 05/06/2025 5:00 PM EDT Performing Organization Information: Site ID: [id number] Name: [facility] Address: [address] [place] [id number] Director: NATE GALAN MD us Danisha Velasco MD LAB BLOOD ORDERABLES Fi nal Result [facility] [address] [address], * TSH (05/05/2025 11:25 AM EDT) TSH 1.40 0.27 - 4.20 uIU/mL 05/05/2025 3:06 PM EDT [facility] Blood PERIPHERAL BLOOD SPECIMEN / Unknown Venipuncture / Unknown 05/05/2025 11:25 AM EDT 05/05/2025 11:25 AM EDT Danisha Velasco MD LAB BLOOD ORDERABLES Fi nal Result Performing Organization Address City/[facility]/ZIP Co de Phone Number [facility] [address] [place] [address], [place] * T4, Free (05/05/2025 11:25 AM EDT) Free Thyroxine 1.5 0.9 - 1.7 ng/dL 05/05/2025 3:06 PM EDT [facility] Blood PERIPHERAL BLOOD SPECIMEN / Unknown Venipuncture / Unknown 05/05/2025 11:25 AM EDT 05/05/2025 11:25 AM EDT us Danisha Velasco MD LAB BLOOD ORDERABLES Fi nal Result [facility] [address] [place] [address], [place] * PTH, Intact (05/05/2025 11:25 AM EDT) Only the most recent of2 resultswithin the time period is included. Intact PTH Result 58 15 - 65 pg/mL 05/05/2025 2:50 PM EDT [facility] Blood PERIPHERAL BLOOD SPECIMEN / Unknown Venipuncture / Unknown 05/05/2025 11:25 AM EDT 05/05/2025 11:25 AM EDT us Danisha Velasco MD LAB BLOOD ORDERABLES Fi nal Result [facility] [address] [place] [address], [place] * Magnesium (05/05/2025 11:25 AM EDT) [facility] Magnesium, Blood 2.0 1.6 - 2.6 mg/dL 05/05/2025 3:06 PM EDT [facility] Blood PERIPHERAL BLOOD SPECIMEN / Unknown Venipuncture / Unknown 05/05/2025 11:25 AM EDT 05/05/2025 11:25 AM EDT us Danisha Velasco MD LAB BLOOD ORDERABLES Fi nal Result Performing Organization Address City/[facility]/ZIP Co de Phone Number [facility] [address] [address], [place] * Calcium (05/05/2025 11:25 AM EDT) [facility] Calcium 9.1 8.4 - 10.3 mg/dL 05/05/2025 3:06 PM EDT [facility] Blood PERIPHERAL BLOOD SPECIMEN / Unknown Venipuncture / Unknown 05/05/2025 11:25 AM EDT 05/05/2025 11:25 AM EDT us Danisha Velasco MD LAB BLOOD ORDERABLES Fi nal Result [facility] [address] [place] [address], [place] * Albumin (05/05/2025 11:25 AM EDT) Albumin, Blood 4.1 3.5 - 5.2 g/dL 05/05/2025 3:06 PM EDT [facility] Blood PERIPHERAL BLOOD SPECIMEN / Unknown Venipuncture / Unknown 05/05/2025 11:25 AM EDT 05/05/2025 11:25 AM EDT us Danisha Velasco MD LAB BLOOD ORDERABLES Fi nal Result [facility] [address] [place] [address], [place] from Last 3 Months Insurance [facility] [employer] Member Subscriber Plan / Payer (Ef fective 2023-Present) Name:Lizeth Coyle Relation to Subscriber:Self Name:Lizeth Coyle Payer ID:[id number] (NAIC) Type:Medicare / Managed Care Address: [place] [phone] [facility] [employer] Care Teams Card Room Manager Relationship Specialty Start Date End Date Hever Solis [address] [address] PCP - Insurance Assigned PCP 05/01/23 Hever Solis [address] [address] PCP - General 05/05/25 Danisha Velasco MD [address] [place] [address] Endocrinology 07/04/13
== END 2025-07-07 11:10 | disposition home or self-care (01) ==
LOC: HO.HMCH 10:17
PROVIDERS: PCP Internal Medicine; Visit Provider Internal Medicine
DX: Z00.00 Encounter for general adult medical examination without abnormal findings (principal); C73 Malignant neoplasm of thyroid gland; E89.0 Postprocedural hypothyroidism; E78.00 Pure hypercholesterolemia, unspecified; E66.3 Overweight; Z68.29 Body mass index [BMI] 29.0-29.9, adult; F41.1 Generalized anxiety disorder; K21.9 Gastro-esophageal reflux disease without esophagitis; D12.6 Benign neoplasm of colon, unspecified; R20.0 Anesthesia of skin

== ENCOUNTER → 2025-07-07 10:16 | Outpatient (BNVA) | payer MEDICARE, SELFPAY | PROVIDERS: PCP Internal Medicine; Visit Provider Internal Medicine | DX: Z00.00 Encounter for general adult medical examination without abnormal findings (principal); C73 Malignant neoplasm of thyroid gland; E89.0 Postprocedural hypothyroidism; E66.3 Overweight; E78.00 Pure hypercholesterolemia, unspecified; F41.1 Generalized anxiety disorder; K21.9 Gastro-esophageal reflux disease without esophagitis; D12.6 Benign neoplasm of colon, unspecified; R20.0 Anesthesia of skin | CPT/HCPCS: 96127; 99397 ==